=== PATIENT | male | born 1930 | race Caucasian/White ===

== ENCOUNTER 2016-11-13 11:49 | Observation (INO) | payer MEDICARE, OTHER ==
[2016-11-13] MEDS ORDERED: Sodium Chloride 0.9% 1000 ML 1,000 ML ONE (12:32)
[2016-11-13] MEDS: Sodium Chloride 0.9% 1000 ML 1,000 ML IV SCH ×2 (12:33→23:41)
--- NOTE | 2016-11-13 12:34 | ERPHSYRPT ---
- History of Present Illness Time Seen by Provider: 11/13/16 12:28 Source: patient Exam Limitations: no limitations Patient Subjective Stated Complaint: no bm x6 days Triage Nursing Assessment: states he hasnt had a bm for 6 days. abd distended and firm. hypoacrtive bs. taking softeners at home with no results. c/o abd pain and chronic back pain Physician History: 86-year-old white male arrives with complaint of pain in his back which is chronic he was noted at home to have distended abdomen he states that he has been having blood in his stool he apparently has not had a bowel movement for 6 days he has no vomiting. Past medical history includes peripheral neuropathy, cataracts, arrhythmia, congestive heart failure, coronary artery disease, hypercholesterolemia, high blood pressure, myocardial infarction, hypothyroidism, arthritis, GERD, anxiety. Past surgical history includes CABG, tonsillectomy and adenoidectomy, bilateral toe surgery Timing/Duration: other (abdominal pain for several days no bowel movement for 6 days) Severity: moderate Modifying Factors: Improves With: other (patient on narcotic analgesia at home) Associated Symptoms: abdominal pain, other (constipation, chronic back pain), No nausea, No vomiting, No shortness of breath, No heartburn, No diaphoresis, No cough, No chills, No chest pain, No fever, No headaches, No loss of appetite , No malaise, No rash, No syncope, No seizure, No weakness Allergies/Adverse Reactions: solifenacin succinate [From Vesicare] Allergy (Severe, Verified 11/13/16 12:26) Shortness of Breath Cephalosporins Allergy (Verified 11/13/16 12:26) digoxin Allergy (Verified 11/13/16 12:26) Penicillins Allergy (Verified 11/13/16 12:26) Rash Home Medications: Calcium Carbonate [Calcium] 1 tab PO 2XW 06/19/16 [History] Cyanocobalamin (Vitamin B-12) [B-12] 2 tab PO DAILY 06/19/16 [History] Levothyroxine Sodium 112 Mcg [Synthroid 112 Mcg] 1 tab PO DAILY 06/19/16 [ History] Omeprazole 20 MG [Prilosec 20 mg] 1 tab PO 3XW 06/19/16 [History] Potassium Chloride 10 Meq Tab* [Klor Con 10 MEQ] 1 tab PO 3XW 06/19/16 [ History] Vits W-Ca,Fe,FA(<1Mg) [] 1 tab PO DAILY 06/19/16 [History] Hx Tetanus, Diphtheria Vaccination/Date Given: Yes Hx Influenza Vaccination/Date Given: No Hx Pneumococcal Vaccination/Date Given: No Immunizations Up to Date: Yes - Review of Systems Constitutional: No Fever, No Chills Eyes: No Symptoms Ears, Nose, & Throat: No Symptoms Respiratory: No Cough, No Dyspnea Cardiac: No Chest Pain, No Edema, No Syncope Abdominal/Gastrointestinal: Abdominal Pain, Constipation, Hematochezia, No Nausea, No Vomiting, No Diarrhea, No Hematemesis, No Melena, No Dysphagia, No Appetite Changes Genitourinary Symptoms: No Dysuria Musculoskeletal: Back Pain (chronic back pain), No Arthralgias, No Neck Pain, No Deformity, No Fall, No Injury, No Joint Redness, No Joint Pain, No Joint Swelling, No Myalgias Skin: No Rash Neurological: No Dizziness, No Focal Weakness, No Sensory Changes Psychological: No Symptoms Endocrine: No Symptoms All Other Systems: Reviewed and Negative - Past Medical History Pertinent Past Medical History: Yes Neurological History: Peripheral Neuropathy ENT History: Cataracts Cardiac History: Arrhythmia, Congestive Heart Failure, Coronary Artery Disease, High Cholesterol, Hypertension, Myocardial Infarction (MD) Respiratory History: CHF Endocrine Medical History: Hypothyroidism Musculoskeletal History: Arthritis GI Medical History: GERD History: No Pertinent History Psycho-Social History: Anxiety Male Reproductive Disorders: Prostate Problems Other Medical History: anemia since c-diff infection - Past Surgical History Past Surgical History: Yes Neuro Surgical History: No Pertinent History Cardiac: CABG Respiratory: No Pertinent History Gastrointestinal: No Pertinent History Genitourinary: No Pertinent History Musculoskeletal: No Pertinent History Male Surgical History: No Pertinent History Other Surgical History: tonsillectomy, total knee bilateral, toe surgery - Social History Smoking Status: Never smoker Exposure to second hand smoke: No Drug Use: none Patient Lives Alone: No - Nursing Vital Signs Nursing Vital Signs: Initial Vital Signs Temperature 98.6 F Temperature Source Oral Pulse Rate 78 Respiratory Rate 18 Blood Pressure [] 128/75 Pain Intensity 2 - Physical Exam General Appearance: mild distress Eye Exam: PERRL/EOMI, eyes nml inspection Ears, Nose, Throat Exam: normal ENT inspection, TMs normal, pharynx normal, moist mucous membranes Neck Exam: normal inspection, non-tender, supple, full range of motion Respiratory Exam: normal breath sounds, lungs clear, No respiratory distress Cardiovascular Exam: regular rate/rhythm, normal heart sounds, normal peripheral pulses Gastrointestinal/Abdomen Exam: soft, normal bowel sounds, tenderness (mild anterior abdominal tenderness periumbilical) Rectal Exam: other (patient with a hemorrhoid which has already ruptured and the rectal area patient also with moderate amount of hard stool in the rectal vault.) Back Exam: normal inspection, normal range of motion, No CVA tenderness, No vertebral tenderness Extremity Exam: normal inspection, normal range of motion, pelvis stable Neurologic Exam: alert, oriented x 3, cooperative, normal mood/affect, nml cerebellar function, nml station & gait, sensation nml, No motor deficits Skin Exam: normal color, warm, dry, No rash Lymphatic Exam: No adenopathy SpO2 Interpretation: normal (94%) SpO2: 94 Oxygen Delivery: Room Air - Radiology Exams Abdomen X-ray Interpretation: Discussed w/ radiologist (obstructive abdominal series: 1. Fluid distended small and large bowel with synchronous fluid leveling favoring ileus 2. Nonacute hyperinflated chest with chronic features) Ordered Tests: Active Orders 24 hr Category Date Time Status IV Insertion STAT Care 11/13/16 12:30 Active OBSTR/ACUTE ABDOMEN SERIES Stat Exams 11/13/16 12:29 Completed AMYLASE Stat Lab 11/13/16 13:06 Completed CBC W DIFF Stat Lab 11/13/16 13:06 Completed CMP Stat Lab 11/13/16 13:06 Completed LIPASE Stat Lab 11/13/16 13:06 Completed Manual Differential NC Stat Lab 11/13/16 13:06 Completed Occult Blood,Stool Other Stat Lab 11/13/16 13:39 Completed Medication Summary Generic Name Dose Route Start Last Admin Trade Name Freq PRN Reason Stop Dose Admin Sodium Chloride 1,000 mls @ 100 mls/hr 11/13/16 12:30 11/13/16 12:33 Sodium Chloride 0.9% 1000 Ml IV 12/13/16 12:29 100 mls/hr .Q10H JARRETT Administration Discontinued Medications Generic Name Dose Route Start Last Admin Trade Name Freq PRN Reason Stop Dose Admin Sodium Chloride Confirm 11/13/16 12:32 Sodium Chloride 0.9% 1000 Ml Administered 11/13/16 12:33 Dose 1,000 mls @ ud .ROUTE .STK-MED ONE Lab/Rad Data: Laboratory Result Diagrams 11/13/16 13:06 11/13/16 13:06 Laboratory Results 11/13/16 11/13/16 11/13/16 Range/Units 13:39 13:06 13:06 WBC 4.7 (4.0-10.5) K/mm3 RBC 2.67 L (4.1-5.6) M/mm3 Hgb 8.6 L (12.5-18.0) gm/dl Hct 26.9 L (42-50) % MCV 100.7 H (78-100) fl MCH 32.2 H (26-32) pg MCHC 32.0 (32-36) g/dl RDW 16.5 H (11.5-14.0) % Plt Count 138 L (150-450) K/mm3 MPV 11.9 H (6-9.5) fl Segmented Neutrophils 56 (36.-66.) % Band Neutrophils 21 H (0.0-2.0) % Lymphocytes (Manual) 18 L (24-44) % Monocytes (Manual) 5 (0.0-12.0) % Differential Comment ABNORMAL Platelet Estimate NORMAL (NORMAL) Polychromasia 1+ Hypochromasia 2+ Poikilocytosis 1+ Basophilic Stippling RARE Anisocytosis 2+ Schistocytes RARE Sodium 137 (136-145) mEq/L Potassium 4.6 (3.5-5.1) mEq/L Chloride 99 (98-107) mEq/L Carbon Dioxide 29.6 (21-32) mEq/L Anion Gap 12.7 (5-15) MEQ/L BUN 36 H (9-20) mg/dL Creatinine 1.29 (0.55-1.30) mg/dl Estimated GFR 56 ML/MIN Glucose 100 (70-110) MG/DL Calcium 8.9 (8.5-10.1) mg/dL Total Bilirubin 0.4 (0.2-1.0) mg/dL AST 37 (15-37) U/L ALT 17 (12-78) U/L Alkaline Phosphatase 121 H (46-116) U/L Serum Total Protein 8.2 (6.4-8.2) gm/dL Albumin 3.3 L (3.4-5.0) g/dL Amylase 89 (25-115) U/L Lipase 41 L (73-393) U/L Stool Occult Blood POSITIVE (Negative) - Progress Progress: improved Progress Note: 11/13/16 14:50 86-year-old white male arrives with complaint of no stool for 6 days he was noted to have a distended abdomen at home also noted have rectal bleeding. Patient is on chronic narcotic analgesia for back pain. Patient with air-fluid levels on acute abdominal series with possible ileus. Patient with some blood from a hemorrhoid on rectal examination moderate amount of stool in the rectal vault. Case is discussed with Dr. Malagon who is publications production supervisor for Dr. Marcos Quinn. Will place patient on IV fluids, will repeat hemoglobin in [address] patient on clear fluids. type and screen on this patient - Departure Time of Disposition: 14:52 Departure Disposition: Observation Clinical Impression: Rectal bleeding, Ileus Constipation Qualifiers: Constipation type: unspecified constipation type Qualified Code(s): K59.00 - Constipation, unspecified Anemia Qualifiers: Anemia type: unspecified type Qualified Code(s): D64.9 - Anemia, unspecified Condition: Fair Critical Care Time: No
[2016-11-13 13:21] LABS: Mean Cell Volume 100.7 fl (78-100); Mean Corpuscular Hemoglobin 32.2 pg (26-32); Mean Platelet Volume 11.9 fl (6-9.5); Platelet Count 138 K/mm3 (150-450); Red Blood Count 2.67 M/mm3 (4.1-5.6); Red Cell Distribution Width 16.5 % (11.5-14.0); White Blood Count 4.7 K/mm3 (4.0-10.5)
[2016-11-13 13:47] LABS: ALBUMIN 3.3 g/dL (3.4-5.0); ANION GAP 12.7 MEQ/L (5-15); BILIRUBIN,TOTAL 0.4 mg/dL (0.2-1.0); Carbon Dioxide 29.6 mEq/L (21-32); Potassium 4.6 mEq/L (3.5-5.1); Total Protein 8.2 gm/dL (6.4-8.2)
[2016-11-13 14:09] LABS: BAND 21 % (0.0-2.0); Hypochromia 2+; Platelet Estimate NORMAL (NORMAL); Polychromasia 1+; Total Cells Counted 100
[2016-11-13 14:10] LABS: ANISOCYTOSIS 2+; Basophilic Stippling RARE; Poikilocytosis 1+; Schistocytes RARE
--- NOTE | 2016-11-13 14:19 | XRAY ---
Indication: Abdomen distention. Comparison: KUB October 16, 2016. 2 views of the abdomen demonstrates new mild/moderate fluid distended small and large bowel loops with synchronous fluid leveling favoring ileus. Also new moderate fecal debris in the descending/sigmoid colon and rectum. Solid organs obscured by overlying bowel gas. Osseous structures intact again with osteopenia and degenerative changes. Single PA chest hyperinflated and clear. Stable left base calcified pleural plaquing and previous CABG surgery. Heart is not enlarged. Remaining bony thorax intact again with osteopenia. Impression: 1. New fluid distended small/large bowel loops with synchronous fluid leveling favoring ileus. Also new left hemicolon fecal stasis. 2. Nonacute hyperinflated chest with chronic features.
[2016-11-13] MEDS ORDERED: Sodium Chloride 0.9% 1000 ML 1,000 ML IV SCH (15:00)
[2016-11-13] MEDS ORDERED: THERAGRAN MULTIVITAMIN PO SCH (18:00)
[2016-11-13] MEDS: PERCOCET TABLET 5/325MG PO SCH ×2 (18:25→21:48)
[2016-11-13] MEDS ORDERED: PERCOCET TABLET 5/325MG ONE (18:25)
[2016-11-13 19:05] LABS: Mean Cell Volume 101.1 fl (78-100); Mean Corpuscular Hemoglobin 32.2 pg (26-32); Mean Platelet Volume 12.1 fl (6-9.5); Platelet Count 137 K/mm3 (150-450); Red Cell Distribution Width 16.7 % (11.5-14.0); White Blood Count 4.7 K/mm3 (4.0-10.5)
[2016-11-13 20:33] LABS: BAND 9 % (0.0-2.0); Platelet Estimate NORMAL (NORMAL); Total Cells Counted 100
[2016-11-13 20:35] LABS: Basophilic Stippling 1+; Hypochromia 2+; Poikilocytosis 2+; Tear Drop Cells 1+
[2016-11-13 20:36] LABS: Ovalocytes 1+; Schistocytes 1+
[2016-11-13] MEDS: DOLOPHINE 10MG Tablet PO SCH (21:47)
[2016-11-13] MEDS ORDERED: Toprol-Xl 25MG Tablets PO SCH (22:00)
[2016-11-14] MEDS: Sodium Chloride 0.9% 1000 ML 1,000 ML IV SCH (01:15)
[2016-11-14 06:06] LABS: ALBUMIN 2.5 g/dL (3.4-5.0); ALKALINE PHOSPHATASE 116 U/L (46-116); ANION GAP 12.3 MEQ/L (5-15); BILIRUBIN,TOTAL 0.5 mg/dL (0.2-1.0); BLOOD UREA NITROGEN 31 mg/dL (9-20); CHLORIDE 103 mEq/L (98-107); Carbon Dioxide 27.3 mEq/L (21-32); Glucose 81 MG/DL (70-110); SGOT/AST 32 U/L (15-37); SGPT/ALT 13 U/L (12-78); SODIUM 138 mEq/L (136-145)
[2016-11-14 07:33] VITALS: BP 145/83; PULSE 68; O2SAT 94
[2016-11-14 08:51] LABS: Collection Type CLEAN CATCH
[2016-11-14 08:52] LABS: COMPLETE URINE MICROSCOPIC? YES
[2016-11-14 09:01] LABS: WBC >100 /HPF (0-5)
[2016-11-14 09:02] LABS: ADD URINE CULTURE? YES (NO); Bacteria PACKED /HPF (NEGATIVE)
[2016-11-14] MEDS ORDERED: NON-FORMULARY ITEM (Omeprazole 20 Mg [Prilosec 20 Mg] 1 TAB) PO SCH (09:15)
[2016-11-14] MEDS ORDERED: SYNTHROID 112 MCG PO SCH (10:00)
[2016-11-14] MEDS ORDERED: Imdur 30 MG PO SCH (10:00)
[2016-11-14] MEDS ORDERED: CYANOCOBALAMIN PO SCH (10:00)
[2016-11-14] MEDS ORDERED: Vitamin B-12 500 MCG PO SCH (10:00)
[2016-11-14] MEDS: PERCOCET TABLET 5/325MG PO SCH (10:43)
[2016-11-14] MEDS: DOLOPHINE 10MG Tablet PO SCH (10:44)
--- NOTE | 2016-11-16 09:15 | SSS ---
DISCHARGE DIAGNOSES: 1) CHRONIC CONSTIPATION. 2) CHRONIC NARCOTIC USAGE. HISTORY OF PRESENT ILLNESS: The patient is an 86 year-old white male patient who presented to the emergency room with complaints of abdominal pain. He reports that it has been six days since his last bowel movement. He apparently had been having some blood in the stool as well which was felt to be secondary to hemorrhoids that were seen on digital examination by the emergency room physician. The patient has had chronic anemia. He was noted to have hemoglobin in 9.1 range on the most recently CBC otherwise. PAST MEDICAL/SURGICAL HISTORY: Significant for gastroesophageal reflux disease, coronary artery bypass graft, tonsillectomy, and adenoidectomy. MEDICATIONS: Levothyroxine 112 mcg daily, omeprazole 20 mg a day, potassium 10 mEq a day, methadone 10 mg b.i.d. half tablet and oxycodone 5/325 mg t.i.d. PRN for pain. ALLERGIES: VESICARE, CEPHALOSPORIN, DIGOXIN, PENICILLIN. PHYSICAL EXAMINATION: Revealed a frail elderly white male patient currently in no acute distress. His temperature was 98.6F oral, pulse 78, respiratory rate 18, blood pressure 128/75. HEENT: Normocephalic, atraumatic. Pupils equal round reactive to light. Extraocular movements intact. He is wearing oxygen per nasal cannula presently. Oropharynx is pink and moist. NECK: Supple without lymphadenopathy, thyromegaly or JVD. CHEST: Clear to auscultation with good air movement bilaterally. HEART: Regular rate and rhythm without murmurs, rubs or gallops. ABDOMEN: Soft, nontender, nondistended without hepatosplenomegaly or masses. EXTREMITIES: Without clubbing, cyanosis or edema. NEUROLOGIC: The patient is alert and oriented x3. No focal deficits are noted. LAB DATA AND TESTS: White blood cell count 4,700, hemoglobin 8.7, his PLT count was slightly low at 137,000. He has O-positive blood type with a negative antibody screen. His occult blood stool was positive. His metabolic panel showed a glucose 100, BUN 36, creatinine 1.29. Electrolytes were normal. Liver enzymes were normal. Amylase and lipase were not elevated. He had KUB showing fluid-filled small bowel loops favoring ileus, hyperinflated chest with chronic features was noted. HOSPITAL COURSE: The patient was admitted to the medicine [facility]. He was given soap suds enema. He reported three bowel movements yesterday and he reports that, "You cannot know how much better I feel at this time having had the bowel movements". The patient was felt to be ready for discharge home at this time with his constipation being relieved. The patient will be discharged home with follow up with Dr. Spencer Caraballo his regular doctor. He will also be sent home on Movantik to treat his opioid induced constipation.
[2016-11-16] MEDS ORDERED: Protonix 40MG Tablet PO SCH (10:00)
== END 2016-11-14 11:15 | disposition home or self-care (01) ==
LOC: ED 11:49 → MED SURG 15:55
PROVIDERS: ADMIT Family Medicine; ATTEND Family Medicine
DX: K59.00 Constipation, unspecified (principal); F15.90 Other stimulant use, unspecified, uncomplicated; K21.9 Gastro-esophageal reflux disease without esophagitis; I25.810 Atherosclerosis of coronary artery bypass graft(s) without angina pectoris; Z79.899 Other long term (current) drug therapy; D64.9 Anemia, unspecified
CPT/HCPCS: 93268 ×2; 99285; 96360; 96361; 82150; 81000 ×2; 36415 ×2; 82272; 83690; 87077; 85025; 80053 ×2; 87086; 86850; 86900; 86901; 74022; 94760; A9270 ×4; G0378

== ENCOUNTER 2016-11-19 23:02 | Emergency (ER) | payer MEDICARE, OTHER ==
[2016-11-19 23:20] VITALS: O2SAT 96
--- NOTE | 2016-11-19 23:22 | ERPHSYRPT ---
- History of Present Illness Time Seen by Provider: 11/19/16 23:09 Source: patient Exam Limitations: no limitations Physician History: TODAY PT HAS HAD DYSURIA. LAST BM WAS YESTERDAY. PT DENIES FEVER, ABDOMINAL PAIN , CHEST PAIN, SHORTNESS OF AIR, NAUSEA, VOMITING. Allergies/Adverse Reactions: solifenacin succinate [From Vesicare] Allergy (Severe, Verified 11/19/16 23:04) Shortness of Breath Cephalosporins Allergy (Verified 11/19/16 23:04) digoxin Allergy (Verified 11/19/16 23:04) Penicillins Allergy (Verified 11/19/16 23:04) Rash Home Medications: Cyanocobalamin (Vitamin B-12) [B-12] 2 tab PO DAILY 06/19/16 [History] Levothyroxine Sodium 112 Mcg [Synthroid 112 Mcg] 1 tab PO DAILY 06/19/16 [ History] Omeprazole 20 MG [Prilosec 20 mg] 1 tab PO 3XW 06/19/16 [History] Vits W-Ca,Fe,FA(<1Mg) [] 1 tab PO DAILY 06/19/16 [History] Methadone HCl 10 mg [DOLOPHINE 10MG Tablet] 0.5 tab PO BID 11/13/16 [ History] Metoprolol Succinate 25 mg Xl* [Toprol-Xl 25MG Tablets] 25 mg PO HS 11/13/16 [History] Hx Tetanus, Diphtheria Vaccination/Date Given: Yes Hx Influenza Vaccination/Date Given: No Hx Pneumococcal Vaccination/Date Given: No - Review of Systems Constitutional: No Fever Respiratory: No Dyspnea Cardiac: No Chest Pain Abdominal/Gastrointestinal: No Abdominal Pain, No Nausea, No Vomiting, No Diarrhea Genitourinary Symptoms: Dysuria All Other Systems: Reviewed and Negative - Past Medical History Pertinent Past Medical History: Yes Neurological History: Peripheral Neuropathy ENT History: Cataracts Cardiac History: Arrhythmia, Congestive Heart Failure, Coronary Artery Disease, High Cholesterol, Hypertension, Myocardial Infarction (SD) Respiratory History: CHF Endocrine Medical History: Hypothyroidism Musculoskeletal History: Arthritis GI Medical History: GERD History: No Pertinent History Psycho-Social History: Anxiety Male Reproductive Disorders: Prostate Problems Other Medical History: anemia since c-diff infection - Past Surgical History Past Surgical History: Yes Neuro Surgical History: No Pertinent History Cardiac: CABG Respiratory: No Pertinent History Gastrointestinal: No Pertinent History Genitourinary: No Pertinent History Musculoskeletal: No Pertinent History Male Surgical History: No Pertinent History Other Surgical History: tonsillectomy, total knee bilateral, toe surgery - Social History Smoking Status: Former smoker Exposure to second hand smoke: No Drug Use: none Patient Lives Alone: No - Nursing Vital Signs Nursing Vital Signs: Initial Vital Signs Temperature 98.3 F Temperature Source Rectal Pulse Rate 70 Respiratory Rate 18 Blood Pressure [Right Arm] 153/76 Pain Intensity 0 - Physical Exam General Appearance: no apparent distress, alert Eye Exam: PERRL/EOMI Ears, Nose, Throat Exam: pharynx normal, moist mucous membranes, other (CERUMEN OCCLUSION OF BOTH EARS) Neck Exam: normal inspection Respiratory Exam: lungs clear Cardiovascular Exam: normal heart sounds Gastrointestinal/Abdomen Exam: soft, normal bowel sounds, No tenderness Male Genitalia Exam: hernia (LEFT INGUINAL HERNIA - NON-TENDER.), No testicular tenderness, No penile discharge Back Exam: normal inspection Extremity Exam: other (STASIS DERMATITIS OF BOTH LEGS/FEET) Neurologic Exam: alert, cooperative Skin Exam: warm, dry - Course Nursing assessment & vital signs reviewed: Yes Ordered Tests: Active Orders 24 hr Category Date Time Status IV Insertion STAT Care 11/20/16 00:49 Active cath [Cath for Specimen-Straight] STAT Care 11/20/16 00:23 Active BMP Stat Lab 11/20/16 00:00 Completed CBC W DIFF Stat Lab 11/20/16 00:00 Completed CULTURE,URINE Stat Lab 11/20/16 00:15 Received Manual Differential NC Stat Lab 11/20/16 00:00 Completed UA W/ MICROSCOPIC Stat Lab 11/20/16 00:15 Completed Medication Summary Generic Name Dose Route Start Last Admin Trade Name Freq PRN Reason Stop Dose Admin Levofloxacin/Dextrose 100 mls @ 100 mls/hr 11/20/16 00:51 11/20/16 01:00 Levofloxacin 500mg/100ml D5w IV 11/20/16 01:50 100 mls/hr STAT ONE Administration Sodium Chloride 1,000 mls @ 999 mls/hr 11/20/16 00:49 11/20/16 01:00 Sodium Chloride 0.9% 1000 Ml IV 11/20/16 01:49 999 mls/hr .[id number] STA Administration Discontinued Medications Generic Name Dose Route Start Last Admin Trade Name Freq PRN Reason Stop Dose Admin Sodium Chloride Confirm 11/20/16 00:57 Sodium Chloride 0.9% 1000 Ml Administered 11/20/16 00:58 Dose 1,000 mls @ ud .ROUTE .STK-MED ONE Levofloxacin/Dextrose Confirm 11/20/16 00:58 Levofloxacin 500mg/100ml D5w Administered 11/20/16 00:59 Dose 100 mls @ ud IV .STK-MED ONE Lidocaine HCl Confirm 11/20/16 00:12 Xylocaine 2% Uro-Jet Administered 11/20/16 00:13 Dose 200 mg .ROUTE .STK-MED ONE Lidocaine HCl 200 mg 11/20/16 00:24 11/20/16 00:24 Xylocaine 2% Uro-Jet TOP 11/20/16 00:25 200 mg STAT ONE Administration Lab/Rad Data: Laboratory Result Diagrams 11/20/16 00:00 11/20/16 00:00 Laboratory Results 11/20/16 11/20/16 11/20/16 Range/Units 00:15 00:00 00:00 WBC 3.9 L (4.0-10.5) K/mm3 RBC 2.63 L (4.1-5.6) M/mm3 Hgb 8.4 L (12.5-18.0) gm/dl Hct 26.1 L (42-50) % MCV 99.2 (78-100) fl MCH 31.9 (26-32) pg MCHC 32.2 (32-36) g/dl RDW 16.2 H (11.5-14.0) % Plt Count 159 (150-450) K/mm3 MPV 11.4 H (6-9.5) fl Segmented Neutrophils 69 H (36.-66.) % Lymphocytes (Manual) 18 L (24-44) % Monocytes (Manual) 9 (0.0-12.0) % Eosinophils (Manual) 1 (0.00-3.0) % Differential Comment ABNORMAL Atypical Lymphocytes 3 % Platelet Estimate NORMAL (NORMAL) Anisocytosis 1+ Sodium 124 L (136-145) mEq/L Potassium 4.3 (3.5-5.1) mEq/L Chloride 90 L (98-107) mEq/L Carbon Dioxide 26.9 (21-32) mEq/L Anion Gap 11.5 (5-15) MEQ/L BUN 13 (9-20) mg/dL Creatinine 1.09 (0.55-1.30) mg/dl Estimated GFR > 60 ML/MIN Glucose 86 (70-110) MG/DL Calcium 8.1 L (8.5-10.1) mg/dL Ur Collection Type CATH Urine Color ORANGE (YELLOW) Urine Appearance SLIGHTLY CLOUDY (CLEAR) Urine pH 7.0 (5-6) Ur Specific [place] 1.015 (1.005-1.025) Urine Protein 100 (Negative) Urine Glucose (UA) 100 (NEGATIVE) mg/dL Urine Ketones NEGATIVE (NEGATIVE) Urine Nitrite POSITIVE (NEGATIVE) Urine Bilirubin SMALL (NEGATIVE) Urine Urobilinogen 4 (0-1) mg/dL Urine WBC (Auto) NEGATIVE (NEGATIVE) Urine RBC (Auto) LARGE (0-5) Vivek/ul Urine Microscopic RBC 25-50 (0-2) /HPF Urine Microscopic WBC 0-2 (0-5) /HPF Amorphous Crystals FEW (NEGATIVE) /HPF Urine Bacteria MANY (NEGATIVE) /HPF Urine Mucus SLIGHT (NEGATIVE) /HPF Urine Yeast FEW (NEGATIVE) /HPF Specimen Received 11/20/16:0015 - Progress Progress Note: 11/20/16 01:40 ON 11/13/16 HB = 8.6. - Departure Time of Disposition: 01:42 Departure Disposition: Home Clinical Impression: UTI Condition: Fair Critical Care Time: No Referrals: ALVA CARNEY [Primary Care Provider] - Instructions: Urinary Tract Infection (UTI) Additional Instructions: FOLLOW UP WITH PRIVATE DOCTOR TOMORROW. Prescriptions: Levofloxacin [Levaquin] 500 mg PO DAILY #10 tablet
[2016-11-20] MEDS ORDERED: XYLOCAINE 2% Uro-Jet ONE (00:12)
[2016-11-20] MEDS ORDERED: XYLOCAINE 2% Uro-Jet TOP ONE (00:24)
[2016-11-20 00:42] LABS: Collection Type CATH
[2016-11-20 00:43] LABS: Bacteria MANY /HPF (NEGATIVE); COMPLETE URINE MICROSCOPIC? YES; Mucus SLIGHT /HPF (NEGATIVE); WBC 0-2 /HPF (0-5); Yeast FEW /HPF (NEGATIVE)
[2016-11-20] MEDS ORDERED: Sodium Chloride 0.9% 1000 ML 1,000 ML IV STA (00:49)
[2016-11-20] MEDS ORDERED: Levofloxacin 500MG/100ML D5W 100 ML IV ONE ×2 (00:51→00:58)
[2016-11-20 00:55] LABS: Mean Cell Volume 99.2 fl (78-100); Mean Corpuscular Hemoglobin 31.9 pg (26-32); Mean Platelet Volume 11.4 fl (6-9.5); Platelet Count 159 K/mm3 (150-450); Red Blood Count 2.63 M/mm3 (4.1-5.6); Red Cell Distribution Width 16.2 % (11.5-14.0); White Blood Count 3.9 K/mm3 (4.0-10.5)
[2016-11-20] MEDS ORDERED: Sodium Chloride 0.9% 1000 ML 1,000 ML ONE (00:57)
[2016-11-20 00:59] VITALS: BP 153/76; PULSE 70
[2016-11-20 01:02] LABS: ANION GAP 11.5 MEQ/L (5-15); BLOOD UREA NITROGEN 13 mg/dL (9-20); CHLORIDE 90 mEq/L (98-107); Carbon Dioxide 26.9 mEq/L (21-32); Glucose 86 MG/DL (70-110); Potassium 4.3 mEq/L (3.5-5.1); SODIUM 124 mEq/L (136-145)
[2016-11-20 01:32] LABS: ANISOCYTOSIS 1+; ATYPICAL LYMPHS 3 %; Eosinophil 1 % (0.00-3.0); Platelet Estimate NORMAL (NORMAL); Total Cells Counted 100
[2016-11-20] MEDS ORDERED: PYRIDIUM 200 MG ONE (01:52)
[2016-11-20] MEDS ORDERED: PYRIDIUM 200 MG PO SCH (10:00)
== END 2016-11-20 02:15 | disposition home or self-care (01) ==
LOC: ED 23:02
DX: N39.0 Urinary tract infection, site not specified (principal); I50.9 Heart failure, unspecified; J44.9 Chronic obstructive pulmonary disease, unspecified; E78.00 Pure hypercholesterolemia, unspecified; I10 Essential (primary) hypertension; I25.10 Atherosclerotic heart disease of native coronary artery without angina pectoris; Z79.899 Other long term (current) drug therapy
CPT/HCPCS: 36000; 36415; 80048; 81000; 85025; 87086; 96360; 96365; 99284; J1956; P9612; A9270-GY

== ENCOUNTER 2016-11-20 09:37 | Inpatient (IN) | payer MEDICARE, OTHER ==
[2016-11-20] MEDS ORDERED: Zofran 4 MG/2 ML VIAL IV PRN (10:59)
[2016-11-20] MEDS ORDERED: NON-FORMULARY ITEM (Omeprazole 20 Mg [Prilosec 20 Mg] 1 TAB) PO SCH (11:30)
[2016-11-20] MEDS ORDERED: DOLOPHINE 10MG Tablet ONE (12:25)
[2016-11-20] MEDS ORDERED: PERCOCET TABLET 5/325MG ONE (12:26)
[2016-11-20] MEDS: DOLOPHINE 10MG Tablet PO SCH ×2 (12:29→23:36)
[2016-11-20] MEDS: Levaquin 250MG/50ML D5W 50 ML IV SCH (12:30)
[2016-11-20] MEDS: PERCOCET TABLET 5/325MG PO SCH ×3 (12:30→21:47)
--- NOTE | 2016-11-20 12:59 | PCM.HP ---
History of Present Illness - Chief Complaint Chief Complaint: uti, hyponatremia, weakness Date: 11/20/16 History of Present Illness: is a 86 year old male. who has had progressive functional decline since discharge from half-way last fall. He has been cared for by his and was doing well initially then developed diarrhea and that improved but became severely constipated and in pain and resulted in admission. He was found to have a UTI then and discharge on levaquin. He had a flare of his low back pain with this as well that he has severe spinal stenosis for and his pain mediation is not controlling it. He was unable to get out of bed yesterday due to weakness and was incontinent of urine. He was brought to the ED and evaluated and discarged but on arriving home he was unable to get out of bed and his was unable to help him, he remained incontinent of urine and in severe pain and confused. He is now confused he does not remember going home this morning or how he got back to the hospital. He is having pain in the low back and pain from the catheter. - Review of Systems Constitutional: Fatigue, Lethargy, No Fever, No Chills Eyes: No Discharge Ears, Nose, & Throat: No Nose Congestion, No Nose Discharge, No Painful Swallowing Respiratory: No Cough Cardiac: No Chest Pain, No Edema, No Palpitations Abdominal/Gastrointestinal: Nausea, Constipation Genitourinary Symptoms: Dysuria, Frequency, Hesitancy, Urinary Retention Musculoskeletal: Arthralgias, Back Pain, Joint Pain Skin: No Cellulitis Neurological: No Dizziness, No Focal Weakness Psychological: No Alcohol Abuse, No Drug Abuse Medications & Allergies Home Medications: Home Medication List Cyanocobalamin (Vitamin B-12) [B-12] 2 tab PO DAILY 06/19/16 [History Confirmed 11/20/16] Levothyroxine Sodium 112 Mcg [Synthroid 112 Mcg] 1 tab PO DAILY 06/19/16 [ History Confirmed 11/20/16] Omeprazole 20 MG [Prilosec 20 mg] 1 tab PO 3XW 06/19/16 [History Confirmed 11/20] Vits W-Ca,Fe,FA(<1Mg) [] 1 tab PO DAILY 06/19/16 [History Confirmed 11/20/16] Isosorbide Mononitrate 30 mg [Imdur 30 MG] 30 mg PO DAILY #0 tab 06/23/16 [ Rx Confirmed 11/20/16] Oxycodone HCl/Acetaminophen [Percocet 5-325 mg Tablet] 1 tab PO TID #90 tablet 06/23/16 [Rx Confirmed 11/20/16] Methadone HCl 10 mg [DOLOPHINE 10MG Tablet] 0.5 tab PO BID 11/13/16 [ History Confirmed 11/20/16] Metoprolol Succinate 25 mg Xl* [Toprol-Xl 25MG Tablets] 25 mg PO HS 11/13/16 [History Confirmed 11/20/16] Levofloxacin [Levaquin] 250 mg PO DAILY #7 tablet 11/14/16 [Rx Confirmed ] Levofloxacin [Levaquin] 500 mg PO DAILY #10 tablet 11/20/16 [Rx Confirmed ] Allergies/Adverse Reactions: Allergies Allergy/AdvReac Type Severity Reaction Status Date / Time solifenacin succinate Allergy Severe Shortness Verified 11/19/16 23:04 [From Vesicare] of Breath Cephalosporins Allergy Verified 11/19/16 23:04 digoxin Allergy Verified 11/19/16 23:04 Penicillins Allergy Rash Verified 11/19/16 23:04 - Past Medical History Past Medical History: Yes Neurological History: Peripheral Neuropathy ENT History: Cataracts Cardiac History: Arrhythmia, Congestive Heart Failure, Coronary Artery Disease, High Cholesterol, Hypertension, Myocardial Infarction (MA) Respiratory History: CHF Endocrine Medical History: Hypothyroidism Musculoskelatal History: Arthritis GI Medical History: GERD History: No Pertinent History Pyscho-Social History: Anxiety Male Reproductive Disorders: Prostate Problems Comment: anemia since c-diff infection - Past Surgical History Past Surgical History: Yes Neuro Surgical History: No Pertinent History Cardiac History: CABG Respiratory Surgery: No Pertinent History GI Surgical History: No Pertinent History Genitourinary Surgical Hx: No Pertinent History Musculskeletal Surgical Hx: No Pertinent History Male Surgical History: No Pertinent History Other Surgical History: tonsillectomy, total knee bilateral, toe surgery - Social History Smoking Status: Former smoker Exposure to second hand smoke: No Alcohol: None Drug Use: none - Physical Exam Vital Signs: Vital Signs - 24 hr Temp Pulse Resp BP Pulse Ox 11/20/16 12:00 98.7 F 76 20 159/74 90 L 11/20/16 11:00 98.7 F 76 20 159/74 90 L General Appearance: mild distress, alert, thin Neurologic Exam: other (oriented to person and place not time recent events he gets confused currently.) Eye Exam: pale conjunctivae, No scleral icterus Ears, Nose, Throat Exam: dry mucous membranes Neck Exam: non-tender, supple Respiratory Exam: normal breath sounds Cardiovascular Exam: regular rate/rhythm, normal heart sounds Gastrointestinal/Abdomen Exam: soft, tenderness, distention, No normal bowel sounds (hypoactive), No rebound Male Genitalia Exam: other (orange urine about 800 mL returned thus far after the catheter placed.) Back Exam: No normal inspection (kyphoscoliosis) Extremity Exam: other (thin frail), No pedal edema Skin Exam: warm, dry Assessment/Plan (1) Acute urinary retention Current Visit: Yes Status: Acute Assessment & Plan: Flower inplace now with about 800 mL of orange urine relieved (he takes azo) continue with Flower in place monitor I/O continue home pain control now this urinary retention and dehydration likely source of hyponatremia gentle hydration continue levaquin as was sensitive to this start laxatives and stool softeners have pt evaluate will likely need ECF placement. Code(s): R33.8 - OTHER RETENTION OF URINE (2) Hyponatremia Current Visit: Yes Status: Acute Code(s): E87.1 - HYPO-OSMOLALITY AND HYPONATREMIA (3) UTI (urinary tract infection) Current Visit: Yes Status: Acute Code(s): N39.0 - URINARY TRACT INFECTION, SITE NOT SPECIFIED (4) Acute constipation Current Visit: Yes Status: Acute Code(s): K59.00 - CONSTIPATION, UNSPECIFIED (5) Chronic anemia Current Visit: No Status: Chronic Code(s): D64.9 - ANEMIA, UNSPECIFIED (6) Coronary arteriosclerosis Current Visit: Yes Status: Acute (7) Atrial fibrillation Current Visit: Yes Status: Acute Assessment & Plan: failed anticoagulants with the cronic severe anemia and gi bleeding Code(s): I48.91 - UNSPECIFIED ATRIAL FIBRILLATION
[2016-11-20] MEDS: Sodium Chloride 0.9% 1000 ML 1,000 ML IV SCH (14:01)
[2016-11-20] MEDS: Senokot-S Tablet PO SCH (21:47)
[2016-11-20] MEDS: Toprol-Xl 25MG Tablets PO SCH (21:47)
[2016-11-21] MEDS: OXYCODONE-ACETAMINOPHEN 10-325 PO PRN ×5 (02:07→22:42)
[2016-11-21 05:50] LABS: Mean Cell Volume 99.2 fl (78-100); Mean Platelet Volume 11.8 fl (6-9.5); Platelet Count 153 K/mm3 (150-450); Red Blood Count 2.47 M/mm3 (4.1-5.6); Red Cell Distribution Width 15.9 % (11.5-14.0); White Blood Count 3.1 K/mm3 (4.0-10.5)
[2016-11-21 05:54] LABS: Mean Corpuscular Hemoglobin 31.9 pg (26-32)
[2016-11-21 06:15] LABS: BLOOD UREA NITROGEN 13 mg/dL (9-20); CHLORIDE 94 mEq/L (98-107); Carbon Dioxide 27.3 mEq/L (21-32); Glucose 85 MG/DL (70-110); Potassium 4.2 mEq/L (3.5-5.1); SODIUM 126 mEq/L (136-145)
[2016-11-21] MEDS: DOLOPHINE 10MG Tablet PO SCH (06:29)
[2016-11-21] MEDS: Imdur 30 MG PO SCH (09:37)
[2016-11-21] MEDS: THERAGRAN MULTIVITAMIN PO SCH (09:37)
[2016-11-21] MEDS: Miralax Powder 17GM PACKET PO SCH (09:38)
[2016-11-21] MEDS: Sodium Chloride 0.9% 1000 ML 1,000 ML IV SCH (09:39)
[2016-11-21] MEDS ORDERED: Dulcolax 10 MG SUPP PR PRN (09:41)
--- NOTE | 2016-11-21 09:48 | PCM.NOTE ---
Date and Time: 11/21/16947 Subjective Assessment: still significant pain but now mostly in the back and lower legs bilaterally as well as paresthesias in the lower legs abdomen is not bothering him now. No bm tolerating leos now no new complaints still disoriented on his days. He needed assistance of 2 to get up to the chair this am. Objective Exam General Appearance: thin Neurologic Exam: alert, other (oriented to place and situation but not day) Skin Exam: warm, dry, pale Eye Exam: No EOMI, No scleral icterus, No pale conjunctivae Ears, Nose, Throat Exam: moist mucous membranes Neck Exam: non-tender, supple Respiratory Exam: normal breath sounds, lungs clear Cardiovascular Exam: regular rate/rhythm, No edema Gastrointestinal/Abdomen Exam: soft, normal bowel sounds, distention, hernia, No tenderness Extremity Exam: normal inspection, No justus's sign, No pedal edema Back Exam: vertebral tenderness (kyphoscoliosis with diffuse tenderness to palpation no point tenderness) Male Genitalia Exam: other (leos in place with clear orange urine) OBJECTIVE DATA Vital Signs: Vital Signs - 24 hr Temp Pulse Resp BP Pulse Ox 11/21/16 07:19 98 F 66 20 122/60 96 11/21/16 04:00 98.1 F 61 17 125/63 96 11/21/16 00:00 98.3 F 57 L 18 139/88 97 11/20/16 20:00 98.0 F 55 L 16 135/55 95 11/20/16 16:57 97.6 F 57 L 17 137/70 93 L 11/20/16 12:00 98.7 F 76 20 159/74 90 L 11/20/16 11:00 98.7 F 76 20 159/74 90 L Oxygen-Last 24 hours O2 Percentage 2 Liters = 28% O2 Percentage 2 Liters = 28% O2 Percentage 2 Liters = 28% O2 Percentage 2 Liters = 28% O2 Percentage 2 Liters = 28% Pain Assessment - Last Documented Pain Intensity 10 Pain Scale Used 0-10 Pain Scale Intake and Output: Intake & Output 11/18/16 11/19/16 11/20/16 11/21/16 11:59 11:59 11:59 11:59 Intake Total 1073 Output Total 1250 Balance -177 Weight 51.573 kg 51.71 kg Lab Results: Lab Results-Last 24 Hours 11/21/16 11/21/16 Range/Units 05:06 05:06 WBC 3.1 L (4.0-10.5) K/mm3 RBC 2.47 L (4.1-5.6) M/mm3 Hgb 7.9 L (12.5-18.0) gm/dl Hct 24.5 L (42-50) % MCV 99.2 (78-100) fl MCH 31.9 (26-32) pg MCHC 32.2 (32-36) g/dl RDW 15.9 H (11.5-14.0) % Plt Count 153 (150-450) K/mm3 MPV 11.8 H (6-9.5) fl Sodium 126 L (136-145) mEq/L Potassium 4.2 (3.5-5.1) mEq/L Chloride 94 L (98-107) mEq/L Carbon Dioxide 27.3 (21-32) mEq/L Anion Gap 9.0 (5-15) MEQ/L BUN 13 (9-20) mg/dL Creatinine 1.10 (0.55-1.30) mg/dl Estimated GFR > 60 ML/MIN Glucose 85 (70-110) MG/DL Calcium 7.9 L (8.5-10.1) mg/dL Multi-Disciplinary Progress Notes: Multi-Disciplinary Progress Notes 11/20/16 15:44 Physical Therapy Note by Samia Dillon SKILLED THERAPY INTERVENTION HELD TODAY PATIENT IS TOO ACUTELY ILL AND WITHOUT ACTIVITY TOLERANCE. ADVISED NURSING STAFF TO ATTEMPT UP IN CHAIR AND FUNCTIONAL TRANSFERS WITH ASSIST TOLERATED OVER THE WEEKEND. WILL MONITOR. D/C PLAN TO ECF.....THERAPY INTERVENTION MAY HAVE TO WAIT UNTIL PATIENT IS IN THAT SETTING.....VERY FRAIL GENERAL CONDITION AT PRESENT. Initialized on 11/20/16 15:44 - END OF NOTE 11/20/16 13:47 Case Management Note by Catherine Darnell NOTIFIED CASE MANAGEMENT THAT THEY WILL EVAL PT ON WEDNESDAY. Initialized on 11/20/16 13:47 - END OF NOTE 11/20/16 13:20 (created 11/20/16 13:43) Case Management Note by Catherine Darnell DISCHARGE PLAN REVIEWED WITH PT'S VIA TELEPHONE. REPORTS THAT SHE FEELS THAT PT IS GOING TO REQUIRE A REHAB STAY PRIOR TO RETURNING HOME. REPORTS THAT HE IS VERY WEAK, HAVING SEVERE PAIN WITH MOVEMENT. REPORTS THAT SHE IS PHYSICALLY UNABLE TO CARE FOR PT. DISCUSSED THAT PT HAS ALREADY ASKED FOR REFERRAL TO [facility]. REPORTS THAT SHE DEFINITELY WANTS HIM TO GO TO [facility] FOR REHAB STAY. DECLINED ADDNL NEEDS AT PRESENT. WILL CONT TO FOLLOW AND ASSESS FOR ALL DC NEEDS. Initialized on 11/20/16 13:43 - END OF NOTE 11/20/16 11:00 (created 11/20/16 13:37) Case Management Note by Catherine Darnell TALKED WITH PT RE NEEDS AT TIME OF DISCHARGE. PT REPORTS THAT HE IS VERY WEAK AND DECONDITIONED. REPORTS PAIN WITH URINATION AND PAIN IN BACK. C/O SEVERE WEAKNESS AND HAVING TROUBLE WITH MOBILITY AND COMPLETING ADL'S INDEPENDENTLY. REPORTS THAT HE FEELS THAT HE IS GOING TO NEED A REHAB STAY @ [facility] ON DISCHARGE. REPORTS THAT HE HAS BEEN TO [facility] BEFORE AND THIS WOULD BE HIS #1 CHOICE. REQUESTS REFERRAL TO [facility]. REPORTS THAT HE DOESN'T FEEL THAT [facility] WOULD BE ENOUGH SUPPORT FOR HIM AT THIS TIME. REFERRAL CALLED TO [facility], SPOKE WITH [facility]. Initialized on 11/20/16 13:37 - END OF NOTE Assessment/Plan (1) Acute urinary retention Current Visit: Yes Status: Acute Assessment & Plan: resolved with Leos remain in place monitor I/O Code(s): R33.8 - OTHER RETENTION OF URINE (2) Hyponatremia Current Visit: Yes Status: Acute Assessment & Plan: slow improvement likely due to the acute urinary obstruction and dehydration contiue slow gentle hydration repeat labs in am Code(s): E87.1 - HYPO-OSMOLALITY AND HYPONATREMIA (3) UTI (urinary tract infection) Current Visit: Yes Status: Acute Assessment & Plan: improving continue levoquin Code(s): N39.0 - URINARY TRACT INFECTION, SITE NOT SPECIFIED (4) Acute constipation Current Visit: Yes Status: Acute Assessment & Plan: try suppository today if has not able to go with miralax and senna-s Code(s): K59.00 - CONSTIPATION, UNSPECIFIED (5) Chronic anemia Current Visit: No Status: Chronic Assessment & Plan: worsened with dilution recent GI + stools no ongoing blood loss hold blood thinners and antiplts. Code(s): D64.9 - ANEMIA, UNSPECIFIED (6) Coronary arteriosclerosis Current Visit: Yes Status: Acute (7) Atrial fibrillation Current Visit: Yes Status: Acute Code(s): I48.91 - UNSPECIFIED ATRIAL FIBRILLATION
[2016-11-21] MEDS ORDERED: Vitamin B-12 500 MCG PO SCH (10:00)
[2016-11-21] MEDS ORDERED: CYANOCOBALAMIN PO SCH (10:00)
[2016-11-21] MEDS ORDERED: NON-FORMULARY ITEM (Prenatal Vits W-Ca,Fe,Fa(<1mg) [Prenatal] 1 TAB) PO SCH (10:00)
[2016-11-21] MEDS: Senokot-S Tablet PO SCH ×2 (10:27→22:42)
[2016-11-21] MEDS: Levaquin 250MG/50ML D5W 50 ML IV SCH (10:28)
[2016-11-21] MEDS: SYNTHROID 112 MCG PO SCH (10:38)
[2016-11-21] MEDS: Vitamin B-12 500 MCG PO SCH (10:41)
[2016-11-21] MEDS: Toprol-Xl 25MG Tablets PO SCH (22:43)
[2016-11-22] MEDS: DOLOPHINE 10MG Tablet PO SCH ×2 (00:20→05:33)
[2016-11-22] MEDS: OXYCODONE-ACETAMINOPHEN 10-325 PO PRN ×4 (03:29→22:53)
[2016-11-22] MEDS: Sodium Chloride 0.9% 1000 ML 1,000 ML IV SCH (05:35)
[2016-11-22] MEDS: Imdur 30 MG PO SCH (08:37)
[2016-11-22] MEDS: SYNTHROID 112 MCG PO SCH (08:38)
[2016-11-22] MEDS: Miralax Powder 17GM PACKET PO SCH (08:38)
[2016-11-22] MEDS: Senokot-S Tablet PO SCH ×2 (08:38→22:16)
[2016-11-22] MEDS: THERAGRAN MULTIVITAMIN PO SCH (08:39)
[2016-11-22] MEDS: Vitamin B-12 500 MCG PO SCH (08:41)
[2016-11-22] MEDS: Levaquin 250MG/50ML D5W 50 ML IV SCH (10:45)
--- NOTE | 2016-11-22 11:41 | PCM.NOTE ---
Date and Time: 11/22/16 1138 Subjective Assessment: Pain doing a little better today restless last night not much sleep still some pain in low back and back of legs did have hard large BM today that initially required a suppository and had good relief after that. Mundo continues to drain clear yellow urine and is thus far tolerating it ok right now. Objective Exam General Appearance: no apparent distress, thin Neurologic Exam: alert, oriented x 3, cooperative Skin Exam: warm, dry Ears, Nose, Throat Exam: moist mucous membranes Neck Exam: normal inspection, non-tender, supple Respiratory Exam: normal breath sounds, lungs clear Cardiovascular Exam: regular rate/rhythm, normal heart sounds, No edema Gastrointestinal/Abdomen Exam: soft, normal bowel sounds, No tenderness, No distention Extremity Exam: No calf tenderness, No pedal edema OBJECTIVE DATA Vital Signs: Vital Signs - 24 hr Temp Pulse Resp BP Pulse Ox 11/22/16 07:15 97.8 F 56 L 20 138/64 95 11/22/16 04:00 97.8 F 57 L 17 134/62 94 L 11/22/16 00:00 98.3 F 57 L 20 128/61 93 L 11/21/16 20:00 97.9 F 59 L 20 95/51 94 L 11/21/16 15:58 97.7 F 58 L 18 128/60 93 L Pain Assessment - Last Documented Pain Intensity 8 Pain Scale Used 0-10 Pain Scale Intake and Output: Intake & Output 11/19/16 11/20/16 11/21/16 11/22/16 11:59 11:59 11:59 11:59 Intake Total 1073 2796 Output Total 1250 1450 Balance -177 1346 Weight 51.573 kg 51.71 kg 54.431 kg Lab Results: Lab Results-Last 24 Hours 11/21/16 Range/Units 05:06 WBC 3.1 L (4.0-10.5) K/mm3 RBC 2.47 L (4.1-5.6) M/mm3 Hgb 7.9 L (12.5-18.0) gm/dl Hct 24.5 L (42-50) % MCV 99.2 (78-100) fl MCH 31.9 (26-32) pg MCHC 32.2 (32-36) g/dl RDW 15.9 H (11.5-14.0) % Plt Count 153 (150-450) K/mm3 MPV 11.8 H (6-9.5) fl Slides for Path Review YES Assessment/Plan (1) Acute urinary retention Current Visit: Yes Status: Acute Assessment & Plan: secondary to BPH with large residual, difficult catheter placement, continue Flower at discharge Code(s): R33.8 - OTHER RETENTION OF URINE (2) Hyponatremia Current Visit: Yes Status: Acute Assessment & Plan: secondary to dehydration and urinary retention slow improvement recheck in am Code(s): E87.1 - HYPO-OSMOLALITY AND HYPONATREMIA (3) UTI (urinary tract infection) Current Visit: Yes Status: Acute Assessment & Plan: on levaquin sensitive Code(s): N39.0 - URINARY TRACT INFECTION, SITE NOT SPECIFIED (4) Acute constipation Current Visit: Yes Status: Acute Code(s): K59.00 - CONSTIPATION, UNSPECIFIED (5) Chronic anemia Current Visit: No Status: Chronic Code(s): D64.9 - ANEMIA, UNSPECIFIED (6) Coronary arteriosclerosis Current Visit: Yes Status: Acute (7) Atrial fibrillation Current Visit: Yes Status: Acute Assessment & Plan: can't tolerate anticoagulation has been on in past with severe bleeding and has the chronic severe anemia with low baseline hgb in the 8 to 9 range. Code(s): I48.91 - UNSPECIFIED ATRIAL FIBRILLATION
[2016-11-22] MEDS: Toprol-Xl 25MG Tablets PO SCH (22:16)
[2016-11-23] MEDS: DOLOPHINE 10MG Tablet PO SCH ×2 (00:49→06:34)
[2016-11-23] MEDS: Sodium Chloride 0.9% 1000 ML 1,000 ML IV SCH (02:34)
[2016-11-23] MEDS: OXYCODONE-ACETAMINOPHEN 10-325 PO PRN ×2 (04:24→15:14)
[2016-11-23] MEDS: THERAGRAN MULTIVITAMIN PO SCH (08:43)
[2016-11-23] MEDS: Imdur 30 MG PO SCH (08:43)
[2016-11-23] MEDS: Senokot-S Tablet PO SCH (08:43)
[2016-11-23] MEDS: SYNTHROID 112 MCG PO SCH (08:44)
[2016-11-23] MEDS: Vitamin B-12 500 MCG PO SCH (08:45)
[2016-11-23] MEDS: Miralax Powder 17GM PACKET PO SCH (08:46)
[2016-11-23] MEDS ORDERED: Protonix 40MG Tablet PO SCH (10:00)
[2016-11-23] MEDS: Levaquin 250MG/50ML D5W 50 ML IV SCH (12:12)
--- NOTE | 2016-11-23 12:52 | PCM.DCORD ---
- Discharge Discharge Date: 11/23/16 Disposition: Skilled Care @ [facility] Condition: Stable Prescriptions: New Trazodone HCl 50 mg [Desyrel 50 mg] 50 mg PO HS #0 tablet Bisacodyl 10 mg [Dulcolax 10 MG SUPP] 10 mg VT QDP PRN #0 supp.rect PRN Reason: Constipation Polyethylene Glycol 3350 17 gm [Miralax Powder 17GM PACKET] 17 gm PO DAILY #0 packet Oxycodone / APAP 10/325 mg [Oxycodone-Acetaminophen 10-325] 1 tab PO Q4H PRN PRN #120 tablet PRN Reason: Pain Sennosides/Docusate Sodium [Senna-S Tablet] 1 each PO BID #0 tablet Methadone HCl [Dolophine HCl] 5 mg PO BID #60 tablet Continue Levothyroxine Sodium 112 Mcg [Synthroid 112 Mcg] 1 tab PO DAILY Omeprazole 20 MG [Prilosec 20 mg] 1 tab PO 3XW Vits W-Ca,Fe,FA(<1Mg) [] 1 tab PO DAILY Cyanocobalamin (Vitamin B-12) [B-12] 2 tab PO DAILY Isosorbide Mononitrate 30 mg [Imdur 30 MG] 30 mg PO DAILY #0 tab Oxycodone HCl/Acetaminophen [Percocet 5-325 mg Tablet] 1 tab PO TID #90 tablet Metoprolol Succinate 25 mg Xl* [Toprol-Xl 25MG Tablets] 25 mg PO HS Discontinued Methadone HCl 10 mg [DOLOPHINE 10MG Tablet] 0.5 tab PO BID Levofloxacin [Levaquin] 250 mg PO DAILY #7 tablet Levofloxacin [Levaquin] 500 mg PO DAILY #10 tablet Additional Instructions: leave Flower Dx BPH with urinary retention
[2016-11-23 16:02] VITALS: BP 176/72; PULSE 65; O2SAT 91
[2016-11-23 16:51] LABS: COMPLETE URINE MICROSCOPIC? YES; Collection Type CATH
[2016-11-23 17:00] LABS: WBC 0-2 /HPF (0-5)
[2016-11-23 17:15] LABS: ADD URINE CULTURE? NO (NO)
--- NOTE | 2016-11-23 21:01 | PCM.DS ---
Discharge Summary Date of Admission: 11/20/16 09:56 Date of Discharge: 11/23/16 Admitting Physician: ALVA CARNEY Primary Care Provider: ALVA CARNEY Allergies Allergies solifenacin succinate [From Vesicare] Allergy (Severe, Verified 11/19/16 23:04) Shortness of Breath Cephalosporins Allergy (Verified 11/19/16 23:04) digoxin Allergy (Verified 11/19/16 23:04) Penicillins Allergy (Verified 11/19/16 23:04) Rash Hospital Summary - Hospital Course Hospital Course: Mr. Nagy was at home living with his and has had functional deterioration. He had been struggling with diarrhea then became constipated resulting in an admission and disimpaction and then returned home but during that admission was found to have UTI. He also flaired up his chronic back pain and was unable to walk or sleep and was moaning in pain. His couldn't help him. He was then brought for admission with his UTI altered mental status and found to have acute urinary retention with relief of 800 mL of urine with difficult catheter placement it was draining dlear fluid he completed levaquin for the previous dx of UTI repeat culture was negative on the cath specimen. He improved with pain control and bowel regimen but still very weak. His Flower was discontinued on day of discharge but he was unable to void and it was replaced prior to discharge to [facility]. - Vitals & Intake/Output Vital Signs: Vital Signs Temperature 98.5 F 11/23/16 16:00 Pulse Rate 65 11/23/16 16:00 Respiratory Rate 17 11/23/16 16:00 Blood Pressure 176/72 11/23/16 16:00 O2 Sat by Pulse Oximetry 91 L 11/23/16 16:00 Oxygen-Last Documented O2 Percentage 2 Liters = 28% Intake & Output: Intake & Output 11/21/16 11/22/16 11/23/16 11/24/16 11:59 11:59 11:59 11:59 Intake Total 1073 2796 1852 Output Total 1250 1450 1700 750 Balance -177 1346 152 -750 Weight 51.71 kg 54.431 kg 55.338 kg - Lab Result Diagrams: 11/21/16 05:06 11/21/16 05:06 Lab Results-Last 24 Hrs: Lab Results-Last 24 Hours 11/23/16 Range/Units 16:30 Ur Collection Type CATH Urine Color YELLOW (YELLOW) Urine Appearance CLEAR (CLEAR) Urine pH 7.0 (5-6) Ur Specific [place] 1.015 (1.005-1.025) Urine Protein NEGATIVE (Negative) Urine Glucose (UA) NEGATIVE (NEGATIVE) mg/dL Urine Ketones NEGATIVE (NEGATIVE) Urine Nitrite NEGATIVE (NEGATIVE) Urine Bilirubin NEGATIVE (NEGATIVE) Urine Urobilinogen 0.2 (0-1) mg/dL Urine WBC (Auto) NEGATIVE (NEGATIVE) Urine RBC (Auto) SMALL (0-5) Vivek/ul Urine Microscopic RBC 2-5 (0-2) /HPF Urine Microscopic WBC 0-2 (0-5) /HPF Specimen Received 11-23-16 3529 - Procedures and Test Procedures and Tests throughout Hospitalization: Therapy Orders & Screens 11/20/16 10:59 PT Eval & Treat (MD Order) Evaluate: Yes Treat: Yes Reason for Eval:: back pain weaknees and falls OT Eval and Treat (MD Order) Comment: Consulting Provider: Physician Instructions: Reason For Exam: Discharge Exam General Appearance: no apparent distress, thin Neurologic Exam: alert, oriented x 3, cooperative Skin Exam: warm, dry Neck Exam: non-tender, supple Respiratory Exam: normal breath sounds Cardiovascular Exam: regular rate/rhythm, normal heart sounds Gastrointestinal/Abdomen Exam: soft, normal bowel sounds, hernia, No tenderness , No guarding Extremity Exam: tenderness, No normal range of motion, No pedal edema Back Exam: vertebral tenderness (kyphoscoliosis) Final Diagnosis/Problem List - Final Discharge Diagnosis/Problem (1) Acute urinary retention Status: Acute (2) Hyponatremia Status: Acute (3) UTI (urinary tract infection) Status: Acute (4) Acute constipation Status: Acute (5) Chronic anemia Status: Chronic (6) Coronary arteriosclerosis Status: Acute (7) Atrial fibrillation Status: Acute - Discharge Disposition: Skilled Care @ [facility] Condition: Stable Prescriptions: New Trazodone HCl 50 mg [Desyrel 50 mg] 50 mg PO HS #0 tablet Bisacodyl 10 mg [Dulcolax 10 MG SUPP] 10 mg MS QDP PRN #0 supp.rect PRN Reason: Constipation Polyethylene Glycol 3350 17 gm [Miralax Powder 17GM PACKET] 17 gm PO DAILY #0 packet Oxycodone / APAP 10/325 mg [Oxycodone-Acetaminophen 10-325] 1 tab PO Q4H PRN PRN #120 tablet PRN Reason: Pain Sennosides/Docusate Sodium [Senna-S Tablet] 1 each PO BID #0 tablet Methadone HCl [Dolophine HCl] 5 mg PO BID #60 tablet Continue Levothyroxine Sodium 112 Mcg [Synthroid 112 Mcg] 1 tab PO DAILY Omeprazole 20 MG [Prilosec 20 mg] 1 tab PO 3XW Vits W-Ca,Fe,FA(<1Mg) [] 1 tab PO DAILY Cyanocobalamin (Vitamin B-12) [B-12] 2 tab PO DAILY Isosorbide Mononitrate 30 mg [Imdur 30 MG] 30 mg PO DAILY #0 tab Oxycodone HCl/Acetaminophen [Percocet 5-325 mg Tablet] 1 tab PO TID #90 tablet Metoprolol Succinate 25 mg Xl* [Toprol-Xl 25MG Tablets] 25 mg PO HS Discontinued Methadone HCl 10 mg [DOLOPHINE 10MG Tablet] 0.5 tab PO BID Levofloxacin [Levaquin] 250 mg PO DAILY #7 tablet Levofloxacin [Levaquin] 500 mg PO DAILY #10 tablet Additional Instructions: leave Flower Dx BPH with urinary retention Forms: Discharge Skin Assessment, Transfer Record Half-Way
== END 2016-11-23 16:40 | DRG 696 ==
LOC: MED SURG 09:56
PROVIDERS: ADMIT Family Medicine; ATTEND Family Medicine
DX: R33.8 Other retention of urine (principal); E87.1 Hypo-osmolality and hyponatremia; N39.0 Urinary tract infection, site not specified; I25.810 Atherosclerosis of coronary artery bypass graft(s) without angina pectoris; K59.00 Constipation, unspecified; D64.9 Anemia, unspecified; I48.91 Unspecified atrial fibrillation; M48.00 Spinal stenosis, site unspecified; I10 Essential (primary) hypertension; E03.9 Hypothyroidism, unspecified; G62.9 Polyneuropathy, unspecified; K21.9 Gastro-esophageal reflux disease without esophagitis; M19.90 Unspecified osteoarthritis, unspecified site; Z79.899 Other long term (current) drug therapy; I25.2 Old myocardial infarction
CPT/HCPCS: 36415; 80048; 81000; 81002; 85027; J1956; A9270-GY

== ENCOUNTER 2016-12-23 13:13 | Inpatient (IN) | payer MEDICARE, OTHER ==
[2016-12-23] MEDS ORDERED: Sodium Chloride 0.9% 1000 ML 1,000 ML IV SCH ×2 (13:30→16:00)
[2016-12-23] MEDS ORDERED: Zofran 4 MG/2 ML VIAL IV ONE (13:32)
[2016-12-23] MEDS ORDERED: PROTONIX 40 MG IV IV ONE ×2 (13:33→13:53)
--- NOTE | 2016-12-23 13:44 | ERPHSYRPT ---
- History of Present Illness Time Seen by Provider: 12/23/16 13:25 Historian: patient, family Exam Limitations: clinical condition Physician History: PATIENT WITH HISTORY OF CHF, HYPERTENSION,CORONARY ARTERY DISEASE, HAD AN ILEUS FINDING ON OUTPATIENT XRAY, COMPLAINS OF GENERALIZED ABDOMINAL PAIN, DISTENTION AND FREQUENT EMESIS OVER THE PAST 2 WEEKS. ASSOCIATED WITH GENERALIZED WEAKNESS , POOR ORAL INTAKE. Timing/Duration: week(s) Activities at Onset: none Quality: cramping, sharpness Abdominal Pain Onset Location: generalized abdomen Pain Radiation: no radiation Severity of Pain-Max: moderate Severity of Pain-Current: moderate Modifying Factors: Improves With: vomiting Associated Symptoms: nausea, vomiting, weakness Previous symptoms: same symptoms as today Allergies/Adverse Reactions: solifenacin succinate [From Vesicare] Allergy (Severe, Verified 12/23/16 13:52) Shortness of Breath Cephalosporins Allergy (Verified 12/23/16 13:52) digoxin Allergy (Verified 12/23/16 13:52) Penicillins Allergy (Verified 12/23/16 13:52) Rash Home Medications: Levothyroxine Sodium 112 Mcg [Synthroid 112 Mcg] 1 tab PO DAILY 06/19/16 [ History] Omeprazole 20 MG [Prilosec 20 mg] 1 tab PO 3XW 06/19/16 [History] Vits W-Ca,Fe,FA(<1Mg) [] 1 tab PO DAILY 06/19/16 [History] Metoprolol Succinate 25 mg Xl* [Toprol-Xl 25MG Tablets] 25 mg PO HS 11/13/16 [History] Duloxetine HCl 30 mg [Cymbalta 30 MG Capsule] 30 mg PO HS 12/23/16 [ History] Oxycodone HCl/Acetaminophen [Oxycodone-Acetaminophen 5-325] 1 each PO Q4HPRN PRN 12/23/16 [History] PANTOPRAZOLE 40 mg Tablet [Protonix 40MG Tablet] 40 mg PO DAILY 12/23/16 [ History] Hx Tetanus, Diphtheria Vaccination/Date Given: Yes Hx Influenza Vaccination/Date Given: No Hx Pneumococcal Vaccination/Date Given: Yes - Review of Systems Constitutional: No Fever, No Chills Eyes: No Symptoms Ears, Nose, & Throat: No Symptoms Respiratory: No Symptoms, No Cough, No Dyspnea Cardiac: No Symptoms, No Chest Pain, No Edema, No Syncope Abdominal/Gastrointestinal: Abdominal Pain, Nausea, Vomiting, Other (ABDOMINAL HERNIA), No Diarrhea Genitourinary Symptoms: No Dysuria Musculoskeletal: No Back Pain, No Neck Pain Skin: No Symptoms, No Rash Neurological: No Symptoms, No Dizziness, No Focal Weakness, No Sensory Changes Psychological: No Symptoms Endocrine: No Symptoms All Other Systems: Reviewed and Negative - Past Medical History Pertinent Past Medical History: Yes Neurological History: Peripheral Neuropathy ENT History: Cataracts Cardiac History: Arrhythmia, Congestive Heart Failure, Coronary Artery Disease, High Cholesterol, Hypertension, Myocardial Infarction ([place]) Respiratory History: CHF Endocrine Medical History: Hypothyroidism Musculoskeletal History: Arthritis GI Medical History: GERD History: No Pertinent History Psycho-Social History: Anxiety Male Reproductive Disorders: Prostate Problems Other Medical History: anemia since c-diff infection - Past Surgical History Past Surgical History: Yes Neuro Surgical History: No Pertinent History Cardiac: CABG Respiratory: No Pertinent History Gastrointestinal: No Pertinent History Genitourinary: No Pertinent History Musculoskeletal: No Pertinent History Male Surgical History: No Pertinent History Other Surgical History: tonsillectomy, total knee bilateral, toe surgery - Social History Smoking Status: Former smoker Exposure to second hand smoke: No Drug Use: none Patient Lives Alone: No - Nursing Vital Signs Nursing Vital Signs: Initial Vital Signs Temperature 97.3 F Temperature Source Oral Pulse Rate 75 Respiratory Rate 18 Blood Pressure [] 134/68 Pain Intensity 9 - Physical Exam General Appearance: mild distress Eye Exam: PERRL/EOMI, eyes nml inspection Ears, Nose, Throat Exam: normal ENT inspection, pharynx normal, moist mucous membranes Neck Exam: normal inspection, non-tender, supple, full range of motion Respiratory Exam: normal breath sounds, lungs clear, No respiratory distress Cardiovascular Exam: regular rate/rhythm, normal heart sounds Gastrointestinal/Abdomen Exam: soft, tenderness, distention, other (HYPOACTIVE HIGH PITCHED BOWEL SOUNDS, LEFT INGUINAL HERNIA, FIRM 4CM X 5CM, NONREDUCIBLE), No mass Back Exam: normal inspection, normal range of motion, No CVA tenderness, No vertebral tenderness Extremity Exam: normal inspection, normal range of motion, pelvis stable Neurologic Exam: alert, oriented x 3, cooperative, normal mood/affect, nml cerebellar function, sensation nml, No motor deficits Skin Exam: normal color, warm, dry SpO2 Interpretation: normal SpO2: 96 - CT Exams Abdomen/Pelvis CT Interpretation: Discussed w/radiologist (INTERVAL ENLARGING LEFT INGUINAL HERNIA WITH NOW INCARCERATED HERNIATED COLON, RESULTING COLONIC OBSTRUCTION AND FECAL STASIS, ABNORJALLY DISTENDED GALLBADDER WITH STABLE TINY GALLSTONE) Ordered Tests: Active Orders 24 hr Category Date Time Status Up With Assistance ROUTINE Activity 12/23/16 15:53 Ordered Admission/Status Order ROUTINE Care 12/23/16 15:53 Ordered Call Admit Doctor for Orders ON ADMISSION Care 12/23/16 15:55 Ordered Code Status Order ROUTINE Care 12/23/16 15:53 Ordered EKG-ER Only STAT Care 12/23/16 15:39 Active Flower [Catheter-Raymond Flower] STAT Care 12/23/16 14:38 Active Gastric Tube Insertion STAT Care 12/23/16 15:29 Active IV Care Q6H Care 12/23/16 15:53 Ordered IV Insertion STAT Care 12/23/16 13:30 Active Intake and Output Q12H Care 12/23/16 15:53 Ordered NG to Suction ROUTINE Care 12/23/16 15:53 Ordered Telemetry ROUTINE Care 12/23/16 15:53 Ordered Vital Signs Q4H Care 12/23/16 15:53 Ordered Consult Surgery ROUTINE Cons 12/23/16 15:53 Ordered NPO except Meds Diet 12/23/16 15:56 Ordered ABDOMEN AND PELVIS W CONTRAST [CT] Stat Exams 12/23/16 13:31 Completed CHEST 1 VIEW (PORTABLE) Stat Exams 12/23/16 15:41 Taken AMYLASE Stat Lab 12/23/16 13:40 Completed BLOOD CULTURE Stat Lab 12/23/16 13:45 Received CBC W DIFF Stat Lab 12/23/16 13:40 Completed CMP Stat Lab 12/23/16 13:40 Completed LIPASE Stat Lab 12/23/16 13:40 Completed MAGNESIUM Stat Lab 12/23/16 13:37 Completed PT INR [PROTIME WITH INR] Stat Lab 12/23/16 15:40 Ordered UA W/ MICROSCOPIC Stat Lab 12/23/16 14:15 Completed Oxygen NASAL CANNULA 2 lpm RT 12/23/16 15:53 Ordered Pulse Oximetry CONTINUOUS RT 12/23/16 15:59 Ordered Transfer Order Routine Transfer 12/23/16 15:52 Ordered Medication Summary Generic Name Dose Route Start Last Admin Trade Name Freq PRN Reason Stop Dose Admin Sodium Chloride 1,000 mls @ 500 mls/hr 12/23/16 13:30 12/23/16 14:11 Sodium Chloride 0.9% 1000 Ml IV 01/22/17 13:29 500 mls/hr .Q2H JARRETT Administration Levofloxacin/Dextrose 100 mls @ 100 mls/hr 12/23/16 15:39 Levofloxacin 500mg/100ml D5w IV 12/23/16 16:38 STAT ONE Discontinued Medications Generic Name Dose Route Start Last Admin Trade Name Freq PRN Reason Stop Dose Admin Morphine Sulfate 2 mg 12/23/16 14:59 12/23/16 15:06 Morphine Sulfate 2 Mg Inj IV 12/23/16 15:00 2 mg STAT ONE Administration Morphine Sulfate Confirm 12/23/16 15:05 Morphine Sulfate 2 Mg Inj Administered 12/23/16 15:06 Dose 2 mg .ROUTE .STK-MED ONE Morphine Sulfate 2 mg 12/23/16 15:34 12/23/16 15:36 Morphine Sulfate 2 Mg Inj IV 12/23/16 15:35 2 mg STAT ONE Administration Morphine Sulfate Confirm 12/23/16 15:34 Morphine Sulfate 2 Mg Inj Administered 12/23/16 15:35 Dose 2 mg .ROUTE .STK-MED ONE Ondansetron HCl 4 mg 12/23/16 13:32 12/23/16 14:11 Zofran 4 Mg/2 Ml Vial IV 12/23/16 13:33 4 mg STAT ONE Administration Ondansetron HCl Confirm 12/23/16 13:53 Zofran 4 Mg/2 Ml Vial Administered 12/23/16 13:54 Dose 4 mg .ROUTE .STK-MED ONE Pantoprazole Sodium 40 mg 12/23/16 13:33 12/23/16 14:11 Protonix 40 Mg Iv IV 12/23/16 13:34 40 mg STAT ONE Administration Pantoprazole Sodium Confirm 12/23/16 13:53 Protonix 40 Mg Iv Administered 12/23/16 13:54 Dose 40 mg IV .STK-MED ONE Lab/Rad Data: Laboratory Result Diagrams 12/23/16 13:40 12/23/16 13:40 Laboratory Results 12/23/16 12/23/16 12/23/16 Range/Units 14:15 13:40 13:40 WBC 6.4 (4.0-10.5) K/mm3 RBC 3.39 L (4.1-5.6) M/mm3 Hgb 11.3 L (12.5-18.0) gm/dl Hct 34.3 L (42-50) % MCV 101.2 H (78-100) fl MCH 33.3 H (26-32) pg MCHC 32.9 (32-36) g/dl RDW 16.0 H (11.5-14.0) % Plt Count 196 (150-450) K/mm3 MPV 12.0 H (6-9.5) fl Gran % 66.6 H (36.0-66.0) % Lymphocytes % 17.0 L (24.0-44.0) % Monocytes % 15.6 H (0.0-12.0) % Eosinophils % 0.2 (0.00-5.0) % Basophils % 0.6 (0.0-0.4) % Basophils # 0.04 (0-0.4) Sodium 132 L (136-145) mEq/L Potassium 3.8 (3.5-5.1) mEq/L Chloride 94 L (98-107) mEq/L Carbon Dioxide 30.8 (21-32) mEq/L Anion Gap 10.6 (5-15) MEQ/L BUN 16 (9-20) mg/dL Creatinine 1.23 (0.55-1.30) mg/dl Estimated GFR 59 ML/MIN Glucose 77 (70-110) MG/DL Calcium 9.6 (8.5-10.1) mg/dL Magnesium (1.8-2.4) mg/dL Total Bilirubin 0.9 (0.2-1.0) mg/dL AST 33 (15-37) U/L ALT 13 (12-78) U/L Alkaline Phosphatase 112 (46-116) U/L Serum Total Protein 7.7 (6.4-8.2) gm/dL Albumin 3.3 L (3.4-5.0) g/dL Amylase 50 (25-115) U/L Lipase 35 L (73-393) U/L Ur Collection Type VOID Urine Color YELLOW (YELLOW) Urine Appearance CLOUDY (CLEAR) Urine pH 7.0 (5-6) Ur Specific [place] 1.015 (1.005-1.025) Urine Protein 30 (Negative) Urine Glucose (UA) NEGATIVE (NEGATIVE) mg/dL Urine Ketones NEGATIVE (NEGATIVE) Urine Nitrite POSITIVE (NEGATIVE) Urine Bilirubin NEGATIVE (NEGATIVE) Urine Urobilinogen 0.2 (0-1) mg/dL Urine WBC (Auto) LARGE (NEGATIVE) Urine RBC (Auto) MODERATE (0-5) Vivek/ul Urine Microscopic RBC 15-25 (0-2) /HPF Urine Microscopic WBC >100 (0-5) /HPF Urine Bacteria MANY (NEGATIVE) /HPF Specimen Received 12/23/16 1415 12/23/16 Range/Units 13:37 WBC (4.0-10.5) K/mm3 RBC (4.1-5.6) M/mm3 Hgb (12.5-18.0) gm/dl Hct (42-50) % MCV (78-100) fl MCH (26-32) pg MCHC (32-36) g/dl RDW (11.5-14.0) % Plt Count (150-450) K/mm3 MPV (6-9.5) fl Gran % (36.0-66.0) % Lymphocytes % (24.0-44.0) % Monocytes % (0.0-12.0) % Eosinophils % (0.00-5.0) % Basophils % (0.0-0.4) % Basophils # (0-0.4) Sodium (136-145) mEq/L Potassium (3.5-5.1) mEq/L Chloride (98-107) mEq/L Carbon Dioxide (21-32) mEq/L Anion Gap (5-15) MEQ/L BUN (9-20) mg/dL Creatinine (0.55-1.30) mg/dl Estimated GFR ML/MIN Glucose (70-110) MG/DL Calcium (8.5-10.1) mg/dL Magnesium 1.9 (1.8-2.4) mg/dL Total Bilirubin (0.2-1.0) mg/dL AST (15-37) U/L ALT (12-78) U/L Alkaline Phosphatase (46-116) U/L Serum Total Protein (6.4-8.2) gm/dL Albumin (3.4-5.0) g/dL Amylase (25-115) U/L Lipase (73-393) U/L Ur Collection Type Urine Color (YELLOW) Urine Appearance (CLEAR) Urine pH (5-6) Ur Specific [place] (1.005-1.025) Urine Protein (Negative) Urine Glucose (UA) (NEGATIVE) mg/dL Urine Ketones (NEGATIVE) Urine Nitrite (NEGATIVE) Urine Bilirubin (NEGATIVE) Urine Urobilinogen (0-1) mg/dL Urine WBC (Auto) (NEGATIVE) Urine RBC (Auto) (0-5) Vivek/ul Urine Microscopic RBC (0-2) /HPF Urine Microscopic WBC (0-5) /HPF Urine Bacteria (NEGATIVE) /HPF Specimen Received - Progress Progress: pain not gone completely Progress Note: 12/23/16 15:49 PATIENT GIVEN IV FLUIDS NORMAL SALINE 500ML/HR, ZOFRAN 4MG, MORPHINE 4MG IV AND LEVAQUIN 500MG IVPB AFTER 2 SETS OF BLOOD CULTURES Discussed with : Prabhjot (CONSULT DR POWER AT 1535 FOR ADMISSION)Adenike ( SURGERY CONSULT DR YUEN AT 1520 FOR SCHEDULING SURGERY [facility] AT 1999) - Departure Time of Disposition: 16:00 Departure Disposition: In-patient Admission Clinical Impression: LEFT INGUINAL INCARCERATED HERNIA, URINARY TRACT INFECTION Condition: Stable Critical Care Time: No Referrals: BAIRON POWER MD [Primary Care Provider] -
[2016-12-23] MEDS ORDERED: Zofran 4 MG/2 ML VIAL ONE (13:53)
[2016-12-23 14:00] LABS: BASOPHIL % 0.6 % (0.0-0.4); Eosinophil % 0.2 % (0.00-5.0); Granulocytes % 66.6 % (36.0-66.0); Mean Cell Volume 101.2 fl (78-100); Mean Corpuscular Hemoglobin 33.3 pg (26-32); Monocytes % 15.6 % (0.0-12.0); Platelet Count 196 K/mm3 (150-450); Red Blood Count 3.39 M/mm3 (4.1-5.6); White Blood Count 6.4 K/mm3 (4.0-10.5)
[2016-12-23 14:19] LABS: ALBUMIN 3.3 g/dL (3.4-5.0); ANION GAP 10.6 MEQ/L (5-15); BILIRUBIN,TOTAL 0.9 mg/dL (0.2-1.0); Carbon Dioxide 30.8 mEq/L (21-32); Potassium 3.8 mEq/L (3.5-5.1); Total Protein 7.7 gm/dL (6.4-8.2)
--- NOTE | 2016-12-23 14:36 | XRAY ---
Indication: Abdominal/pelvic pain. Hernia. Multiple contiguous images obtained through the abdomen and pelvis using 80 cc Isovue 370 contrast only. Comparison: Noncontrast exam of June 19, 2016. Lung bases again demonstrates small bilateral pleural effusions with bibasilar dependent atelectasis. Stable left base calcified pleural plaquing. Heart is borderline enlarged. New small hiatal hernia. Interval enlarging large left inguinal hernia with now a loop of sigmoid colon herniating with wall thickening and small fluid concerning for incarceration. The more proximal colon is abnormally distended up to 6.5 cm with diffuse scattered fecal debris favoring obstruction. Noncontrasted stomach and small bowel loops appear unremarkable. New mild abdominal and pelvic ascites. No free air. Gallbladder is distended with stable tiny gallstone near the neck of the gallbladder. No abnormal biliary distention. Stable bilateral renal cysts. New Flower catheter with balloon tip in bladder lumen. Remaining liver, pancreas, spleen, adrenal glands, and ureters are unremarkable. There remains heavy aortoiliac calcifications without AAA. No pathologic retroperitoneal lymphadenopathy. Osseous structures again demonstrates osteopenia and degenerative changes throughout the spine and both hips. Stable L1 compression fracture with near-complete collapse. New T11 and L2 compression deformities with approximately 25-52% height loss. Impression: 1. Interval enlarging left inguinal hernia with now incarcerated herniated colon, resulting colonic obstruction, and fecal stasis. 2. New abdominal/pelvic ascites. 3. Abnormally distended gallbladder with stable tiny gallstone. 4. New small hiatal hernia. 5. Stable bilateral renal cysts. 6. Stable L1 compression fracture. New T11 and L2 compression deformities. 7. Stable bibasilar effusions and left lung base calcified pleural plaquing. CT DI 13.06
[2016-12-23 14:49] LABS: COMPLETE URINE MICROSCOPIC? YES; Collection Type VOID
[2016-12-23 14:50] LABS: Bacteria MANY /HPF (NEGATIVE); WBC >100 /HPF (0-5)
[2016-12-23] MEDS ORDERED: MORPHINE SULFATE 2 MG INJ IV ONE ×2 (14:59→15:34)
[2016-12-23] MEDS ORDERED: MORPHINE SULFATE 2 MG INJ ONE ×2 (15:05→15:34)
[2016-12-23] MEDS ORDERED: Levofloxacin 500MG/100ML D5W 100 ML IV ONE ×2 (15:39→16:00)
[2016-12-23] MEDS ORDERED: MORPHINE SULFATE 2 MG INJ IV PRN (15:53)
[2016-12-23] MEDS ORDERED: Zofran 4 MG/2 ML VIAL IV PRN (15:53)
--- NOTE | 2016-12-23 16:22 | XRAY ---
Indication: Cough. NG tube placement. Comparison: November 13, 2016. Portable chest less inflated today with now bibasilar effusions/atelectasis as reported on same-day CT abdomen. Upper lungs clear. Heart is borderline enlarged again demonstrating previous CABG surgery. New NG tube with the distal tip coiled in the stomach. Bony thorax intact again with mild osteopenia. Impression: 1. New NG tube tip in the stomach. 2. New bibasilar effusions/atelectasis.
[2016-12-23 16:38] LABS: INR 1.18 (0.8-3.0); PROTIME 13.1 SECONDS (8.83-12.87)
--- NOTE | 2016-12-23 16:50 | PCM.HP ---
History of Present Illness - Chief Complaint Chief Complaint: INCARCERATED LEFT INGUINAL HERNIA History of Present Illness: is a 86 year old male who was developed abdominal distension, nausea , vomiting and pain over the last few days. He was seen by me yesterday at [facility], abdominal xray showed ileus, he was sent for further evaluation in the ER due to large left inguinal hernia and concern for incarceration. He has a history of CAD and had CABG 4 years ago. He denies any recent chest pain, dyspnea or new complaints. - Review of Systems Constitutional: No Fever, No Chills Respiratory: No Cough, No Short Of Breath Cardiac: No Chest Pain, No Edema, No Syncope Abdominal/Gastrointestinal: Abdominal Pain, Nausea, Vomiting Genitourinary Symptoms: No Dysuria Skin: No Rash All Other Systems: Reviewed and Negative Medications & Allergies Home Medications: Home Medication List Levothyroxine Sodium 112 Mcg [Synthroid 112 Mcg] 1 tab PO DAILY 06/19/16 [ History Confirmed 12/23/16] Omeprazole 20 MG [Prilosec 20 mg] 1 tab PO 3XW 06/19/16 [History Confirmed 12/23] Vits W-Ca,Fe,FA(<1Mg) [] 1 tab PO DAILY 06/19/16 [History Confirmed 12/23/16] Isosorbide Mononitrate 30 mg [Imdur 30 MG] 30 mg PO DAILY #0 tab 06/23/16 [ Rx Confirmed 12/23/16] Metoprolol Succinate 25 mg Xl* [Toprol-Xl 25MG Tablets] 25 mg PO HS 11/13/16 [History Confirmed 12/23/16] Bisacodyl 10 mg [Dulcolax 10 MG SUPP] 10 mg PA QDP PRN #0 supp.rect [Rx Confirmed 12/23/16] Methadone HCl [Dolophine HCl] 5 mg PO BID #60 tablet 11/23/16 [Rx Confirmed 11/06] Polyethylene Glycol 3350 17 gm [Miralax Powder 17GM PACKET] 17 gm PO DAILY # 0 packet 11/23/16 [Rx Confirmed 12/23/16] Sennosides/Docusate Sodium [Senna-S Tablet] 1 each PO BID #0 tablet 11/23/16 [ Rx Confirmed 12/23/16] Duloxetine HCl 30 mg [Cymbalta 30 MG Capsule] 30 mg PO HS 12/23/16 [ History Confirmed 12/23/16] Oxycodone HCl/Acetaminophen [Oxycodone-Acetaminophen 5-325] 1 each PO Q4HPRN PRN 12/23/16 [History Confirmed 12/23/16] PANTOPRAZOLE 40 mg Tablet [Protonix 40MG Tablet] 40 mg PO DAILY 12/23/16 [ History Confirmed 12/23/16] Allergies/Adverse Reactions: Allergies Allergy/AdvReac Type Severity Reaction Status Date / Time solifenacin succinate Allergy Severe Shortness Verified 12/23/16 13:52 [From Vesicare] of Breath Cephalosporins Allergy Verified 12/23/16 13:52 digoxin Allergy Verified 12/23/16 13:52 Penicillins Allergy Rash Verified 12/23/16 13:52 - Past Medical History Past Medical History: Yes Neurological History: Peripheral Neuropathy ENT History: Cataracts Cardiac History: Arrhythmia, Congestive Heart Failure, Coronary Artery Disease, High Cholesterol, Hypertension, Myocardial Infarction ([place]) Respiratory History: CHF Endocrine Medical History: Hypothyroidism Musculoskelatal History: Arthritis GI Medical History: GERD History: No Pertinent History Pyscho-Social History: Anxiety Male Reproductive Disorders: Prostate Problems Comment: anemia since c-diff infection - Past Surgical History Past Surgical History: Yes Neuro Surgical History: No Pertinent History Cardiac History: CABG Respiratory Surgery: No Pertinent History GI Surgical History: No Pertinent History Genitourinary Surgical Hx: No Pertinent History Musculskeletal Surgical Hx: No Pertinent History Male Surgical History: No Pertinent History Other Surgical History: tonsillectomy, total knee bilateral, toe surgery - Social History Smoking Status: Former smoker Exposure to second hand smoke: No Alcohol: None Drug Use: none - Physical Exam Vital Signs: Vital Signs - 24 hr Temp Pulse Resp BP Pulse Ox 12/23/16 16:00 96 12/23/16 15:39 75 18 134/68 97 12/23/16 14:50 70 20 142/62 93 L 12/23/16 14:04 76 18 101/61 97 12/23/16 13:14 97.3 F 70 18 129/40 96 General Appearance: cachetic Neurologic Exam: alert Respiratory Exam: normal breath sounds, lungs clear, No respiratory distress Gastrointestinal/Abdomen Exam: distention, hernia (large left hard inguinal hernia, nonreducible. no warmth or redness), No normal bowel sounds Skin Exam: normal color Results - Other Procedures and Tests Respiratory Therapy 12/23/16 15:53 Oxygen NASAL CANNULA 2 lpm Assessment/Plan (1) Incarcerated inguinal hernia, unilateral Current Visit: Yes Status: Acute Assessment & Plan: patient has need for urgent surgery, has ng in place. on levaquin. Dr Blanc has been consulted Code(s): K40.30 - UNIL INGUINAL HERNIA, W OBST, W/O GANGR, NOT SPCF RECUR (2) Cachexia Current Visit: Yes Status: Acute Code(s): R64 - CACHEXIA (3) Coronary arteriosclerosis Current Visit: No Status: Acute Assessment & Plan: EKG shows incomplete RBBB unchanged from prior study. he is in poor health in general, was in ECF and is a DNR. Anesthesia has assessed patient and will discuss with surgery regarding doing surgery here vs transfer.
[2016-12-23 17:16] VITALS: BP 180/88; PULSE 69; O2SAT 97
[2016-12-25] MEDS ORDERED: Levofloxacin 500MG/100ML D5W 100 ML IV SCH (10:00)
== END 2016-12-23 19:05 | disposition home or self-care (01) | DRG 394 ==
LOC: ED 13:13 → MED SURG 16:24
PROVIDERS: ADMIT Family Medicine; ATTEND Family Medicine
DX: K40.30 Unilateral inguinal hernia, with obstruction, without gangrene, not specified as recurrent (principal); R64 Cachexia; I25.810 Atherosclerosis of coronary artery bypass graft(s) without angina pectoris; N39.0 Urinary tract infection, site not specified; I10 Essential (primary) hypertension; E03.9 Hypothyroidism, unspecified; K21.9 Gastro-esophageal reflux disease without esophagitis; I50.9 Heart failure, unspecified; M19.90 Unspecified osteoarthritis, unspecified site; I48.91 Unspecified atrial fibrillation; G62.9 Polyneuropathy, unspecified; I25.2 Old myocardial infarction; F41.8 Other specified anxiety disorders
CPT/HCPCS: 36000; 36415; 51702; 71010; 74177; 80053; 81000; 82150; 83690; 83735; 85025; 85610; 86850; 86900; 86901; 87040; 94760; 96360; 96361; 96374; 96375; 99285; J1956; J2270; J2405

== ENCOUNTER 2018-04-23 05:50 | Emergency (ER) | payer MEDICARE, OTHER ==
--- NOTE | 2018-04-23 06:04 | ERPHSYRPT ---
- History of Present Illness Source: patient, EMS Exam Limitations: no limitations Occurred: just prior to arrival Reason for Fall: tripped Injuries/Pain Location: upper extremity (left forearm skin tear) Quality: sharpness Severity of Pain-Max: moderate Severity of Pain-Current: moderate Modifying Factors: Improves With: movement (worsens) Associated Symptoms (Fall): back pain, extremity injury, shortness of breath, trouble walking, No abdominal pain, No neck pain Hx Tetanus, Diphtheria Vaccination/Date Given: Yes Hx Influenza Vaccination/Date Given: No Hx Pneumococcal Vaccination/Date Given: Yes <SARY LUTHER - Last Filed: 04/23/18 06:09> <ARIELLA MUÑIZ - Last Filed: 04/23/18 09:03> - History of Present Illness Time Seen by Provider: 04/23/18 05:50 Physician History: 87 y/o white male presents via ems after falling in his home. pt has a left forearm skin tear. of more significance, pt has lower back pain worse than usual after the fall. no head injury (SARY LUTHER) The patient is an 87-year-old male brought in by ambulance from home where he reports that when he stepped out of bed at 5 AM, he became dizzy, tried to pivot slightly, and then fell on the floor, causing a small skin tear to his left wrist and left rib and mid back pain. He has back pain but this is much worse now. He did not hit his head. There is no loss of consciousness. He takes methadone for peripheral neuropathy. His past medical history is significant for intermittent dizziness, peripheral neuropathy, back pain, hypothyroidism, depression, hypertension, GERD, congestive heart failure, CAD, and A. fib. He does not recall when his last tetanus vaccination was given to him. (ARIELLA MUÑIZ) Allergies/Adverse Reactions: solifenacin succinate [From Vesicare] Allergy (Severe, Verified 04/23/18 06:11) Shortness of Breath Cephalosporins Allergy (Verified 04/23/18 06:11) digoxin Allergy (Verified 04/23/18 06:11) Penicillins Allergy (Verified 04/23/18 06:11) Rash Home Medications: Levothyroxine Sodium 112 Mcg [Synthroid 112 Mcg] 1 tab PO DAILY 06/19/16 [ History] Omeprazole 20 MG [Prilosec 20 mg] 1 tab PO 3XW 06/19/16 [History] Vits W-Ca,Fe,FA(<1Mg) [] 1 tab PO DAILY 06/19/16 [History] Metoprolol Succinate 25 mg Xl* [Toprol-Xl 25MG Tablets] 25 mg PO HS 11/13/16 [History] Acetaminophen 325 mg [Tylenol 325 mg] 650 mg PO Q4H PRN PRN 12/23/16 [ History] Duloxetine HCl 30 mg [Cymbalta 30 MG Capsule] 30 mg PO HS 12/23/16 [ History] Magnesium Hydroxide 30 ml [Milk of Magnesia 30 ml] 30 mg PO Q4H PRN PRN [History] Oxycodone HCl/Acetaminophen [Oxycodone-Acetaminophen 5-325] 1 each PO Q4HPRN PRN 12/23/16 [History] PANTOPRAZOLE 40 mg Tablet [Protonix 40MG Tablet] 40 mg PO DAILY 12/23/16 [ History] - Review of Systems Constitutional: No Symptoms, No Fever Eyes: No Symptoms, No Eye Pain Ears, Nose, & Throat: No Symptoms, No Ear Pain Respiratory: No Symptoms, No Cough Cardiac: No Symptoms, No Chest Pain Abdominal/Gastrointestinal: No Symptoms, No Abdominal Pain, No Nausea, No Vomiting, No Diarrhea Genitourinary Symptoms: No Symptoms, No Dysuria, No Frequency, No Hematuria Musculoskeletal: Back Pain, Fall Skin: No Symptoms Neurological: No Symptoms, No Dizziness Psychological: No Symptoms, No Alcohol Abuse, No Drug Abuse, No Anxiety Endocrine: No Symptoms Hematologic/Lymphatic: No Symptoms Immunological/Allergic: No Symptoms All Other Systems: Reviewed and Negative <SARY LUTHER - Last Filed: 04/23/18 06:09> - Past Medical History Pertinent Past Medical History: Yes Neurological History: Peripheral Neuropathy ENT History: Cataracts Cardiac History: Arrhythmia, Congestive Heart Failure, Coronary Artery Disease, High Cholesterol, Hypertension, Myocardial Infarction ([place]) Respiratory History: CHF Endocrine Medical History: Hypothyroidism Musculoskeletal History: Arthritis GI Medical History: GERD History: No Pertinent History Psycho-Social History: Anxiety Male Reproductive Disorders: Prostate Problems Other Medical History: anemia since c-diff infection - Past Surgical History Past Surgical History: Yes Neuro Surgical History: No Pertinent History Cardiac: CABG Respiratory: No Pertinent History Gastrointestinal: No Pertinent History Genitourinary: No Pertinent History Musculoskeletal: No Pertinent History Male Surgical History: No Pertinent History Other Surgical History: tonsillectomy, total knee bilateral, toe surgery - Social History Smoking Status: Never smoker Exposure to second hand smoke: No Drug Use: none Patient Lives Alone: No <SARY LUTHER - Last Filed: 04/23/18 06:09> - Wendi Coma Score Best Eye Response ([place]): (4) open spontaneously Best Verbal Response ([place]): (5) oriented Best Motor Response ([place]): (6) obeys commands [place] Total: 15 - Physical Exam General Appearance: mild distress, alert, anxiety Head Injury: no evidence of injury, No Marcos's Sign, No contusions Eye Exam: PERRL/EOMI, eyes nml inspection ENT Exam: airway nml, No evidence of ENT injury, No dental injury Neck Exam: supple, trachea midline, full range of motion, normal alignment, normal inspection, No focal neuro deficit, No limited range of motion, No muscle spasm, No paraspinous muscle tender, No pain on movement of neck, No stiff neck, No tenderness Respiratory/Chest Exam: normal breath sounds, No chest tenderness, No respiratory distress, No decreased breath sounds, No wheezing, No accessory muscle use Cardiovascular Exam: normal heart sounds, regular rate/rhythm Gastrointestinal Exam: soft, normal bowel sounds, No tenderness, No guarding, No rebound Rectal Exam: not done Back Exam: vertebral tenderness (lumbar), decreased range of motion, point tenderness Extremity Exam: normal range of motion, capillary refill <3 sec, pelvis stable, tenderness, other (left forearm skin tear) Neurologic Exam: alert, oriented x 3, cooperative, kidney trimmer II-XII nml as tested, normal mood/affect Skin Exam: normal color, warm, other (skin tear left forearm) SpO2 Interpretation: normal Oxygen Delivery: Room Air <SARY LUTHER - Last Filed: 04/23/18 06:09> - Physical Exam Respiratory/Chest Exam: chest tenderness (tenderness to left lateral ribs.) <ARIELLA MUÑIZ - Last Filed: 04/23/18 09:03> - Nursing Vital Signs Nursing Vital Signs: Initial Vital Signs Temperature 98.5 F 04/23/18 05:57 Pulse Rate 70 04/23/18 05:57 Respiratory Rate 20 04/23/18 05:57 Blood Pressure 154/77 04/23/18 05:57 O2 Sat by Pulse Oximetry 94 L 04/23/18 05:57 Pain Scale Pain Intensity 10 - Course EKG Interpreted by Me: RATE, A-fib, NORMAL AXIS, NORMAL INTERVALS, NORMAL QRS - Radiology Exams Chest X-ray Interpretation: Reviewed by me, Teleradiologist Report (Per Dr Ballesteros), Other (chest interstitial lung disease.) Left Ribs X-ray Interpretation: Reviewed by me, Teleradiologist Report (Per Dr Ballesteros), Non -displaced Fracture (subtle left lateral 6th rib fracture) T-Spine X-ray Interpretation: Reviewed by me, Teleradiologist Report (Per Dr Ballesteros), Other (compression fracture of T11 of unknown age. I reviewed abb/pelvis CT and see compression fracture of T11.) L-Spine X-ray Interpretation: Reviewed by me, Teleradiologist Report (Per Dr Ballesteros), Other (compression fractures of L1 and L2 of unknown age. I reviewed abd/pelvis CT 12/23/16 and see copression fractures of L1 and L2.) <ARIELLA MUÑIZ - Last Filed: 04/23/18 09:03> Ordered Tests: Active Orders 24 hr Category Date Time Status Clean Catch Urine Specimen STAT Care 04/23/18 06:31 Active EKG-ER Only STAT Care 04/23/18 06:31 Active IV Insertion STAT Care 04/23/18 06:31 Active Wound Care STAT Care 04/23/18 06:37 Active CHEST 2 VIEWS (PA AND LAT) Stat Exams 04/23/18 06:28 Taken LUMBAR LIMITED (2 OR 3 VIEWS) Stat Exams 04/23/18 06:08 Taken RIBS UNILATERAL Stat Exams 04/23/18 06:28 Taken THORACIC SPINE (AP,LAT,SWIMM) Stat Exams 04/23/18 06:08 Taken CBC W DIFF Stat Lab 04/23/18 06:15 Completed CMP Stat Lab 04/23/18 06:15 Completed Lactic Acid Stat Lab 04/23/18 06:40 Completed Manual Differential NC Stat Lab 04/23/18 06:15 Completed TROPONIN Q3H Lab 04/23/18 06:15 Completed TROPONIN Q3H Lab 04/23/18 09:45 Ordered TROPONIN Q3H Lab 04/23/18 12:45 Ordered TROPONIN Q3H Lab 04/23/18 15:45 Ordered TROPONIN Q3H Lab 04/23/18 18:45 Ordered UA W/RFX UR CULTURE Stat Lab 04/23/18 06:50 Completed Medication Summary Discontinued Medications Generic Name Dose Route Start Last Admin Trade Name Jayna PRN Reason Stop Dose Admin Acetaminophen 1,000 mg 04/23/18 06:29 04/23/18 06:37 Tylenol Extra Strength 500 Mg PO 04/23/18 06:30 1,000 mg STAT STA Administration Acetaminophen Confirm 04/23/18 06:34 Tylenol Extra Strength 500 Mg Administered 04/23/18 06:35 Dose 1,000 mg .ROUTE .STK-MED ONE Diphtheria/Tetanus/Acell Pertussis 0.5 ml 04/23/18 06:30 04/23/18 06:38 Adacel Vial IM 04/23/18 06:31 0.5 ml .ONCE ONE Administration Diphtheria/Tetanus/Acell Pertussis Confirm 04/23/18 06:34 Adacel Vial Administered 04/23/18 06:35 Dose 0.5 ml IM .STK-MED ONE Sodium Chloride 500 mls @ 999 mls/hr 04/23/18 06:31 04/23/18 07:02 Sodium Chloride 0.9% 1000 Ml IV 04/23/18 07:01 999 mls/hr .Q31M STA Administration Sodium Chloride Confirm 04/23/18 07:00 Sodium Chloride 0.9% 1000 Ml Administered 04/23/18 07:01 Dose 1,000 mls @ ud .ROUTE .STK-MED ONE Lab/Rad Data: Laboratory Result Diagrams 04/23/18 06:15 04/23/18 06:15 Laboratory Results 04/23/18 04/23/18 04/23/18 Range/Units 06:50 06:40 06:15 WBC (4.0-10.5) K/mm3 RBC (4.1-5.6) M/mm3 Hgb (12.5-18.0) gm/dl Hct (42-50) % MCV (78-100) fl MCH (26-32) pg MCHC (32-36) g/dl RDW (11.5-14.0) % Plt Count (150-450) K/mm3 MPV (6-9.5) fl Absolute Granulocytes (1.4-6.9) Segmented Neutrophils (36.-66.) % Band Neutrophils (0.0-2.0) % Lymphocytes (Manual) (24-44) % Monocytes (Manual) (0.0-12.0) % Eosinophils (Manual) (0.00-3.0) % Platelet Estimate (NORMAL) RBC Morphology Sodium (137-145) mmol/L Potassium (3.5-5.1) mmol/L Chloride (98-107) mmol/L Carbon Dioxide (22-30) mmol/L Anion Gap (5-15) MEQ/L BUN (9-20) mg/dL Creatinine (0.66-1.25) mg/dL Estimated GFR ML/MIN Glucose (74-106) mg/dL Lactic Acid 1.2 (0.4-2.0) Calcium (8.4-10.2) mg/dL Total Bilirubin (0.2-1.3) mg/dL AST (17-59) U/L ALT (0-50) U/L Alkaline Phosphatase (38-126) U/L Troponin I 0.022 (0.000-0.034) ng/mL Serum Total Protein (6.3-8.2) g/dL Albumin (3.5-5.0) g/dL Ur Collection Type CCMS Urine Color YELLOW (YELLOW) Urine Appearance CLEAR (CLEAR) Urine pH 7.0 (5-6) Ur Specific [place] 1.010 (1.005-1.025) Urine Protein NEGATIVE (Negative) Urine Ketones NEGATIVE (NEGATIVE) Urine Blood NEGATIVE (0-5) Vivek/ul Urine Nitrite NEGATIVE (NEGATIVE) Urine Bilirubin NEGATIVE (NEGATIVE) Urine Urobilinogen NORMAL (0-1) mg/dL Ur Leukocyte Esterase NEGATIVE (NEGATIVE) Urine Culture Reflexed NO (NO) Urine Glucose NEGATIVE (NEGATIVE) mg/dL Specimen Received 0650 04/23/18 04/23/18 04/23/18 Range/Units 06:15 06:15 WBC 4.7 (4.0-10.5) K/mm3 RBC 3.38 L (4.1-5.6) M/mm3 Hgb 11.5 L (12.5-18.0) gm/dl Hct 35.1 L (42-50) % MCV 103.8 H (78-100) fl MCH 34.0 H (26-32) pg MCHC 32.8 (32-36) g/dl RDW 15.4 H (11.5-14.0) % Plt Count 143 L (150-450) K/mm3 MPV 12.0 H (6-9.5) fl Absolute Granulocytes 2.96 (1.4-6.9) Segmented Neutrophils 66 (36.-66.) % Band Neutrophils 5 H (0.0-2.0) % Lymphocytes (Manual) 21 L (24-44) % Monocytes (Manual) 7 (0.0-12.0) % Eosinophils (Manual) 1 (0.00-3.0) % Platelet Estimate DECREASED (NORMAL) RBC Morphology NORMAL Sodium 140 (137-145) mmol/L Potassium 4.4 (3.5-5.1) mmol/L Chloride 102 (98-107) mmol/L Carbon Dioxide 28 (22-30) mmol/L Anion Gap 13.8 (5-15) MEQ/L BUN 31 H (9-20) mg/dL Creatinine 1.30 H (0.66-1.25) mg/dL Estimated GFR 55.2 ML/MIN Glucose 109 H (74-106) mg/dL Lactic Acid (0.4-2.0) Calcium 9.8 (8.4-10.2) mg/dL Total Bilirubin 0.60 (0.2-1.3) mg/dL AST 35 (17-59) U/L ALT 20 (0-50) U/L Alkaline Phosphatase 133 H (38-126) U/L Troponin I (0.000-0.034) ng/mL Serum Total Protein 8.9 H (6.3-8.2) g/dL Albumin 4.5 (3.5-5.0) g/dL Ur Collection Type Urine Color (YELLOW) Urine Appearance (CLEAR) Urine pH (5-6) Ur Specific [place] (1.005-1.025) Urine Protein (Negative) Urine Ketones (NEGATIVE) Urine Blood (0-5) Vivek/ul Urine Nitrite (NEGATIVE) Urine Bilirubin (NEGATIVE) Urine Urobilinogen (0-1) mg/dL Ur Leukocyte Esterase (NEGATIVE) Urine Culture Reflexed (NO) Urine Glucose (NEGATIVE) mg/dL Specimen Received <SARY LUTHER - Last Filed: 04/23/18 06:09> - Progress Progress: improved Counseled pt/family regarding: lab results, need for follow-up, rad results <ARIELLA MUÑIZ - Last Filed: 04/23/18 09:03> - Progress Progress Note: 04/23/18 06:[address] muñiz (SARY LUTHER) 04/23/18 06:25 Pt care discussed and care accepted from Dr Luther at 07:00. (ARIELLA MUÑIZ) <SARY LUTHER - Last Filed: 04/23/18 06:09> - Departure Time of Disposition: 09:00 Departure Disposition: Home Critical Care Time: No <ARIELLA MUÑIZ - Last Filed: 04/23/18 09:03> - Departure Clinical Impression: Fall, Left rib fracture Condition: Stable Additional Instructions: You have a mild fracture of your left sixth rib. You have old fractures of your back at T11, L1, and L2. You do not have any new fractures in your back. You were given Tylenol 1000 mg orally in the ER. Continue to take your routine medicines at home for pain control. Follow-up as needed with your primary medical doctor.
[2018-04-23 06:11] VITALS: O2SAT 94
[2018-04-23] MEDS ORDERED: TYLENOL EXTRA STRENGTH 500 MG PO STA (06:29)
[2018-04-23] MEDS ORDERED: Adacel Vial IM ONE ×2 (06:30→06:34)
[2018-04-23] MEDS ORDERED: TYLENOL EXTRA STRENGTH 500 MG ONE (06:34)
[2018-04-23 06:39] LABS: Granulocyte Absolute (ANC) 2.96 (1.4-6.9); Hematocrit 35.1 % (42-50); Hemoglobin 11.5 gm/dl (12.5-18.0); Mean Cell Volume 103.8 fl (78-100); Mean Corpuscular Hgb Concent. 32.8 g/dl (32-36); Platelet Count 143 K/mm3 (150-450); Red Blood Count 3.38 M/mm3 (4.1-5.6); Red Cell Distribution Width 15.4 % (11.5-14.0); White Blood Count 4.7 K/mm3 (4.0-10.5)
[2018-04-23 06:48] LABS: ALBUMIN 4.5 g/dL (3.5-5.0); ANION GAP 13.8 MEQ/L (5-15); BILIRUBIN,TOTAL 0.6 mg/dL (0.2-1.3); Calcium 9.8 mg/dL (8.4-10.2); Creatinine 1 1.3 mg/dL (0.66-1.25); Potassium 4.4 mmol/L (3.5-5.1); Total Protein 8.9 g/dL (6.3-8.2)
[2018-04-23] MEDS ORDERED: Sodium Chloride 0.9% 1000 ML 1,000 ML ONE (07:00)
[2018-04-23 07:10] LABS: BAND 5 % (0.0-2.0); Eosinophil 1 % (0.00-3.0); Lymphocytes 21 % (24-44); Monocyte 7 % (0.0-12.0); Neutrophils 66 % (36.-66.); Total Cells Counted 100
[2018-04-23 07:11] LABS: Platelet Estimate DECREASED (NORMAL)
[2018-04-23 07:11] LABS: Appearance CLEAR (CLEAR); Bilirubin NEGATIVE (NEGATIVE); Blood NEGATIVE Ery/ul (0-5); Glucose NEGATIVE (NEGATIVE); Ketones NEGATIVE (NEGATIVE); Leukocyte Esterase NEGATIVE (NEGATIVE); Nitrite NEGATIVE (NEGATIVE); Protein,Urine Dip NEGATIVE (Negative); Urobilinogen NORMAL mg/dL (0-1)
--- NOTE | 2018-04-23 08:39 | XRAY ---
Indication: Pain following fall. Comparison: August 26, 2011. AP/lateral lumbar spine demonstrates new remote-appearing L1/L2 compression fractures with 50-75% height loss. Elsewhere stable osteopenia, moderate L3-S1 degenerative disc disease, and aortoiliac calcifications. No other bony, articular, or soft tissue abnormalities.
--- NOTE | 2018-04-23 08:41 | XRAY ---
Indication: Pain following fall. Comparison: None Frontal/lateral thoracic spine demonstrates 12 typical rib bearing thoracic vertebral segments in normal alignment with osteopenia, mild multilevel degenerative spondylosis, remote-appearing T11 compression fracture with near-complete collapse, and CABG surgery. No other bony, articular, or soft tissue abnormalities.
--- NOTE | 2018-04-23 08:43 | XRAY ---
Indication: Pain following fall. Short of breath. Comparison: None 2 views of the left ribs demonstrates osteopenia. No acute fracture or suspicious bony lesions. Chest, thoracic spine, and lumbar spine reported separately.
--- NOTE | 2018-04-23 08:50 | XRAY ---
Indication: Pain and short of breath following fall. Comparison: December 23, 2016. PA/lateral chest again hyperinflated with chronic lung markings and left base calcified pleural plaquing. No focal infiltrate, consolidation, or large effusion. Heart is not enlarged again demonstrating CABG surgery. Bony thorax again demonstrates osteopenia and remote T11/L1/L2 compression fractures. Impression: Stable nonacute chest with chronic features.
[2018-04-23 09:23] VITALS: BP 178/92; PULSE 78
== END 2018-04-23 09:29 | disposition home or self-care (01) ==
LOC: ED 05:50
DX: S22.32XA Fracture of one rib, left side, initial encounter for closed fracture (principal); S51.812A Laceration without foreign body of left forearm, initial encounter; M54.9 Dorsalgia, unspecified; R42 Dizziness and giddiness; W06.XXXA Fall from bed, initial encounter; Y93.89 Activity, other specified; Y92.003 Bedroom of unspecified non-institutional (private) residence as the place of occurrence of the external cause; Z79.899 Other long term (current) drug therapy; G62.9 Polyneuropathy, unspecified
CPT/HCPCS: 36000; 36415; 71046; 71100; 72072; 72100; 80053; 81002; 83605; 84484; 85025; 90471; 90715; 93005; 96360; 99284; A9270-GY